=== PATIENT | female | born 1990 | race Caucasian/White ===

== ENCOUNTER 2017-04-13 15:42 | Emergency (ER) | payer OTHER ==
--- NOTE | 2017-04-13 15:49 | PDOC ---
Rapid Medical Evaluation Time Seen by Provider: 04/13/17 15:44 Medical Evaluation: Allergies Allergy/AdvReac Type Severity Reaction Status Date / Time acetaminophen [From Tylenol] Allergy Intermediate tachycardia Verified 12/31/13 10:27 04/13/17 15:45 I have performed a brief in-person evaluation of this patient. The patient presents with a chief complaint of: Pain to base of posterior head/ posterior neck Pertinent physical exam findings: The patient will proceed to the ED for further evaluation. 27 yo F c/o chavez/neck pain x3d ago with blurry vision "little dots all over ". Pt states she's having a hard time remembering things and a "heavy" time talking. Denies n/v/f/c/d, lightheadedness, dizziness, weakness, /d/cp, sob, ext numbness /tingling sensation. Pt is speaking in full sentences in the triage suite. Marissa is able to ambulate without difficulties. Obtained UA/UPreg
[2017-04-13 16:02] VITALS: BMI 24.9
[2017-04-13 16:46] LABS: URINE APPEARANCE CLEAR; URINE BILIRUBIN NEGATIVE (NEGATIVE); URINE BLOOD NEGATIVE (NEGATIVE); URINE COLOR COLORLESS; URINE GLUCOSE (UA) NEGATIVE (NEGATIVE); URINE KETONE TRACE (NEGATIVE); URINE NITRITE NEGATIVE (NEGATIVE); URINE PROTEIN NEGATIVE (NEGATIVE); URINE UROBILINOGEN NEGATIVE E.U./dl (0.2-1.0)
[2017-04-13] MEDS ORDERED: SODIUM CHLORIDE 1,000 ML IV STA (17:04)
[2017-04-13] MEDS ORDERED: METOCLOPRAMIDE HCL INJECTION 10 MG/2 ML VIAL IVPB ONE (17:04)
[2017-04-13] MEDS ORDERED: DEXAMETHASONE SOD PHOSPHATE 10 MG/1 ML VIAL IVPB ONE (17:05)
[2017-04-13 17:24] LABS: URINE LEUK ESTERASE 2+ (NEGATIVE)
[2017-04-13 17:27] LABS: URINE BACTERIA MODERATE /hpf (NONE SEEN); URINE WBC 9 /hpf (3-5)
[2017-04-13 17:45] LABS: BASOPHIL 0.9 % (0-2.0); EOSINOPHIL 0.9 % (0-4.5); MCH 24.6 pg (25.7-33.7); MCHC 31.9 g/dl (32.0-36.0); MEAN CELL VOLUME 77.1 fl (80-96); MEAN PLT VOLUME 9.9 fl (7.5-11.1); NEUTROPHILS 75.9 % (42.8-82.8); PLATELET COUNT 239 K/MM3 (134-434); WHITE BLOOD COUNT 12.5 K/mm3 (4.0-10.0)
[2017-04-13] MEDS ORDERED: DEXAMETHASONE SOD PHOSPHATE 10 MG/1 ML VIAL ONE (17:46)
[2017-04-13] MEDS ORDERED: METOCLOPRAMIDE HCL INJECTION 10 MG/2 ML VIAL ONE (17:46)
--- NOTE | 2017-04-13 18:09 | PDOC ---
History of Present Illness - History of Present Illness Initial Comments: 04/13/17 18:10 The patient is a 27 year old female, with a significant past medical history of migraines, who presents to the emergency department with diffuse headache and posterior neck pain for 5 days. She reports her headache is sharp, diffuse and constant, with intermittent, momentary increases in severity. She reports taking excedrin with minimal alleviation of symptoms, however, denies taking any pain medication in the past 48 hours. She also reports seeing visual black floaters when her headache is exacerbated. The patient reports some difficulty speaking secondary to her neck pain. She localizes most of her pain to the posterior aspect of her neck with mild associated bilateral neck discomfort. She admits to having nasal congestion, but denies throat pain or cough. She denies recent sick contacts. LMP: 3 weeks ago She denies chest pain, shortness of breath, and dizziness. She denies fever, chills, nausea, vomit, diarrhea and constipation. She denies dysuria, frequency , urgency and hematuria. Allergies: acetaminophen (tachycardia) Past surgical history: Family Hx: migraines (mother) Social history: Pt denies toxic habits PCP - Dr. Marissa Marlow <Kady Kwok - Last Filed: 04/13/17 18:10> <Josefa Streeter - Last Filed: 04/13/17 21:43> - General Chief Complaint: Headache Stated Complaint: HEADACHE Time Seen by Provider: 04/13/17 15:44 Past History <Kady Kwok - Last Filed: 04/13/17 18:10> - Past Medical History Asthma: No Cancer: No Cardiac Disorders: No Diabetes: No HTN: No Seizures: No Thyroid Disease: No - Psycho/Social/Smoking Cessation Hx Anxiety: No Suicidal Ideation: No Smoking Status: No Smoking History: Never smoked Have you smoked in the past 12 months: No Number of Cigarettes Smoked Daily: 0 Hx Alcohol Use: No Drug/Substance Use Hx: No Hx Substance Use Treatment: No <Josefa Streeter - Last Filed: 04/13/17 21:43> - Past Medical History Allergies/Adverse Reactions: Allergies Allergy/AdvReac Type Severity Reaction Status Date / Time acetaminophen [From Tylenol] Allergy Intermediate tachycardia Verified 04/13/17 15:46 Home Medications: Ambulatory Orders Amox-Tr/K Cl [Augmentin - 875Mg Tablet] 1 tab PO BID #28 tablet 04/13/17 Fluticasone Prop 0.05% Nasal [Flonase -] 1 - 2 spray NS DAILY PRN #1 spray.pump 04/13/17 Oxymetazoline 0.05% Nasal Soln [Afrin -] 1 spray NS ONCE PRN #1 spraybtl Review of Systems - Review of Systems Able to Perform ROS?: Yes Comments:: 04/13/17 18:10 CONSTITUTIONAL: Absent: fever, chills, diaphoresis, generalized weakness, malaise, loss of appetite HEENT: (+) black visual floaters. Absent: rhinorrhea, nasal congestion, throat pain, throat swelling, difficulty swallowing, mouth swelling, ear pain, eye pain CARDIOVASCULAR: Absent: chest pain, syncope, palpitations, irregular heart rate, lightheadedness , peripheral edema RESPIRATORY: Absent: cough, shortness of breath, dyspnea with exertion, orthopnea, wheezing, stridor, hemoptysis GASTROINTESTINAL: Absent: abdominal pain, abdominal distension, nausea, vomiting, diarrhea, constipation, melena, hematochezia GENITOURINARY: Absent: dysuria, frequency, urgency, hesitancy, hematuria, flank pain, genital pain MUSCULOSKELETAL: (+) neck pain. Absent: arthralgia, joint swelling SKIN: Absent: rash, itching, pallor HEMATOLOGIC/IMMUNOLOGIC: Absent: easy bleeding, easy bruising, lymphadenopathy, frequent infections ENDOCRINE: Absent: unexplained weight gain, unexplained weight loss, heat intolerance, cold intolerance NEUROLOGIC: (+) headache, Absent: focal weakness or paresthesias, dizziness, unsteady gait, seizure, mental status changes, bladder or bowel incontinence PSYCHIATRIC: Absent: anxiety, depression, suicidal or homicidal ideation, hallucinations. <Kady Kwok - Last Filed: 04/13/17 18:10> *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 - Vital Signs Last Vital Signs Temp Pulse Resp BP Pulse Ox 98.4 F 124 H 18 121/88 100 04/13/17 15:46 04/13/17 15:46 04/13/17 15:46 04/13/17 15:46 04/13/17 15:46 - 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 Comments: 04/13/17 18:11 GENERAL: Well developed, well nourished. Awake and alert. No acute distress. HEENT: (+) nasal congestion. Normocephalic, atraumatic. PERRLA, EOMI. No conjunctival pallor. Sclera are non-icteric. Moist mucous membranes. Oropharynx is clear. NECK: (+) mild pain with forward flexion of neck. No pain with extension. No neck tenderness to palpation. Supple. Full ROM. No JVD. Carotid pulses 2+ and symmetric, without bruits. No thyromegaly. No lymphadenopathy. CARDIOVASCULAR: Regular rate and rhythm. No murmurs, rubs, or gallops. Distal pulses are 2+ and symmetric. PULMONARY: No evidence of respiratory distress. Lungs clear to auscultation bilaterally. No wheezing, rales or rhonchi. ABDOMINAL: Soft. Non-tender. Non-distended. No rebound or guarding. No organomegaly. Normoactive bowel sounds. MUSCULOSKELETAL Normal range of motion at all joints. No bony deformities or tenderness. No CVA tenderness. EXTREMITIES: No cyanosis. No clubbing. No edema. No calf tenderness. SKIN: Warm and dry. Normal capillary refill. No rashes. No jaundice. NEUROLOGICAL: Alert, awake, appropriate. Cranial nerves 2-12 intact. Normoreflexic in the upper and lower extremities. Normal speech. Toes are down-going bilaterally. Gait is normal without ataxia. PSYCHIATRIC: Cooperative. Good eye contact. Appropriate mood and affect. <Kady Kwok - Last Filed: 04/13/17 18:10> - Vital Signs Last Vital Signs Temp Pulse Resp BP Pulse Ox 98.4 F 124 H 18 121/88 100 04/13/17 15:46 04/13/17 15:46 04/13/17 15:46 04/13/17 15:46 04/13/17 15:46 <Josefa Streeter - Last Filed: 04/13/17 21:43> ED Treatment Course - LABORATORY CBC & Chemistry Diagram: 04/13/17 17:29 04/13/17 17:29 - ADDITIONAL ORDERS Additional order review: Laboratory Results 04/13/17 15:55 Urine Color Colorless Urine Appearance Clear Urine pH 7.0 Urine Protein Negative Urine Glucose (UA) Negative Urine Ketones Trace H Urine Blood Negative Urine Nitrite Negative Urine Bilirubin Negative Urine Urobilinogen Negative Ur Leukocyte Esterase 2+ H Urine RBC None Urine WBC 9 Ur Epithelial Cells Rare Urine Bacteria Moderate Urine HCG, Qual Negative 04/13/17 17:29 RBC 4.90 MCV 77.1 L MCHC 31.9 L RDW 14.0 MPV 9.9 Neutrophils % 75.9 Lymphocytes % 16.7 D Monocytes % 5.6 Eosinophils % 0.9 Basophils % 0.9 - Medications Given in the ED: ED Medications Discontinued Medications Generic Name Dose Route Start Last Admin Trade Name Freandreia PRN Reason Stop Dose Admin Dexamethasone Sodium Phosphate 10 mg 04/13/17 17:05 04/13/17 17:57 Decadron Injection - IVPB 04/13/17 17:06 10 mg ONCE ONE Administration Sodium Chloride 1,000 mls @ 1,000 mls/hr 04/13/17 17:04 04/13/17 17:37 Normal Saline - IV 04/13/17 18:03 1,000 mls/hr ASDIR STA Administration Metoclopramide HCl 10 mg 04/13/17 17:04 04/13/17 17:50 Reglan Injection - IVPB 04/13/17 17:05 10 mg ONCE ONE Administration <Kady Kwok - Last Filed: 04/13/17 18:10> - LABORATORY CBC & Chemistry Diagram: 04/13/17 17:29 04/13/17 17:29 - ADDITIONAL ORDERS Additional order review: Laboratory Results 04/13/17 15:55 Urine Color Colorless Urine Appearance Clear Urine pH 7.0 Urine Protein Negative Urine Glucose (UA) Negative Urine Ketones Trace H Urine Blood Negative Urine Nitrite Negative Urine Bilirubin Negative Urine Urobilinogen Negative Ur Leukocyte Esterase 2+ H Urine RBC None Urine WBC 9 Ur Epithelial Cells Rare Urine Bacteria Moderate Urine HCG, Qual Negative 04/13/17 17:29 RBC 4.90 MCV 77.1 L MCHC 31.9 L RDW 14.0 MPV 9.9 Neutrophils % 75.9 Lymphocytes % 16.7 D Monocytes % 5.6 Eosinophils % 0.9 Basophils % 0.9 - Medications Given in the ED: ED Medications Discontinued Medications Generic Name Dose Route Start Last Admin Trade Name Rishabhq PRN Reason Stop Dose Admin Dexamethasone Sodium Phosphate 10 mg 04/13/17 17:05 04/13/17 17:57 Decadron Injection - IVPB 04/13/17 17:06 10 mg ONCE ONE Administration Sodium Chloride 1,000 mls @ 1,000 mls/hr 04/13/17 17:04 04/13/17 17:37 Normal Saline - IV 04/13/17 18:03 1,000 mls/hr ASDIR STA Administration Metoclopramide HCl 10 mg 04/13/17 17:04 04/13/17 17:50 Reglan Injection - IVPB 04/13/17 17:05 10 mg ONCE ONE Administration <Joesfa Streeter - Last Filed: 04/13/17 21:43> Medical Decision Making - Medical Decision Making 04/13/17 21:40 37-year-old female with a history of migraine headaches presented with a frontal headache and complaining of neck pain, fever. -No focal neural deficits -I exam showed visual acuity 20 / 20, no diplopia, no blurry vision, easily reads written page CBC showed a mild leukocytosis of 12.8 Negative test Chemistries were unremarkable CAT scan of the head didn't show acute sphenoid sinusitis She was started on antibiotics, and prescriptions were written for intranasal steroids and decongestants -Patient received fluids, Benadryl and Reglan and her headache resolved Upon further discussion with the patient. She did reveal that she had an appointment tomorrow with her nose and throat doctor appointment, Dr. Zhu imp acute sinusitis <Josefa Streeter - Last Filed: 04/13/17 21:43> *DC/Admit/Observation/Transfer - Attestations Scribe Attestion: 04/13/17 18:12 Documentation prepared by Kady Kwok, acting as medical instrument cable fabricator for Josefa Streeter MD <Kady Kwok - Last Filed: 04/13/17 18:10> <Josefa Streeter - Last Filed: 04/13/17 21:43> Diagnosis at time of Disposition: Acute sinusitis - Discharge Dispostion Disposition: HOME Condition at time of disposition: Stable - Prescriptions Prescriptions: Oxymetazoline 0.05% Nasal Soln [Afrin -] 1 spray NS ONCE PRN #1 spraybtl PRN Reason: Nasal Congestion Amox-Tr/K Cl [Augmentin - 875Mg Tablet] 1 tab PO BID #28 tablet Fluticasone Prop 0.05% Nasal [Flonase -] 1 - 2 spray NS DAILY PRN #1 spray.pump PRN Reason: Nasal Congestion - Referrals Referrals: Marissa Marlow NP [Primary Care Provider] - Jm Becker MD [Staff Physician] - - Patient Instructions Printed Discharge Instructions: DI for Sinusitis
[2017-04-13 18:29] LABS: ANION GAP 8 (8-16); BILIRUBIN,TOTAL 0.7 mg/dL (0.2-1.0); CALCIUM 9.4 mg/dL (8.5-10.1); CO2 25 mmol/L (21-32); CREATININE 0.8 mg/dL (0.55-1.02); GLUCOSE,RANDOM 90 mg/dL (74-106); SGOT/AST 18 U/L (15-37); SGPT/ALT 17 U/L (12-78); TOT PROT 7.7 g/dl (6.4-8.2)
[2017-04-13 18:30] LABS: ALK PHOS 73 U/L (45-117)
[2017-04-13] MEDS ORDERED: KETOROLAC TROMETHAMINE 30 MG/1 ML VIAL IVPUSH ONE (19:13)
[2017-04-13 19:28] VITALS: BP 112/66; PULSE 97; TEMP 98.8
[2017-04-13] MEDS ORDERED: CEFTRIAXONE 2 GM in DEXTROSE 5%-WATER - 100 ML IVPB ONE (20:04)
[2017-04-13] MEDS ORDERED: CEFTRIAXONE 100 ML IVPB ONE (20:13)
== END 2017-04-13 21:09 | disposition home or self-care (01) ==
LOC: JER 15:42
PROC: 3E03329 Introduction of Other Anti-infective into Peripheral Vein, Percutaneous Approach (ICD-10-PCS; principal; 2017-04-13)
PROC: 3E033GC Introduction of Other Therapeutic Substance into Peripheral Vein, Percutaneous Approach (ICD-10-PCS; 2017-04-13)
PROC: 3E0333Z Introduction of Anti-inflammatory into Peripheral Vein, Percutaneous Approach (ICD-10-PCS; 2017-04-13)
PROC: 3E0337Z Introduction of Electrolytic and Water Balance Substance into Peripheral Vein, Percutaneous Approach (ICD-10-PCS; 2017-04-13)
DX: J01.90 Acute sinusitis, unspecified (principal)
CPT/HCPCS: 36415; 70450-TC; 80053; 81003; 81015; 84703; 85025; 86140; 96361; 96365; 96375; 99282-25

== ENCOUNTER 2017-07-14 15:16 | Emergency (ER) | payer OTHER ==
[2017-07-14 15:23] VITALS: BMI 25.0
--- NOTE | 2017-07-14 16:59 | PDOC ---
History of Present Illness - General Chief Complaint: Pain Stated Complaint: ABD PAIN (8 WKS ) Time Seen by Provider: 07/14/17 16:59 - History of Present Illness Initial Comments: 27 year old 8 week [id number] presenting with sharp abdominal pain and vaginal spotting. She has not had a vaginal ultrasound yet but states that she is 8 weeks . Denies any medical problems and had a previous that was complicated but a fetus in an abnormal presentation so it was converted to . She has been taking vitamins but has trouble keeping them down because of her morning sickness. 07/14/17 17:53 Past History - Past Medical History Allergies/Adverse Reactions: Allergies Allergy/AdvReac Type Severity Reaction Status Date / Time acetaminophen [From Tylenol] Allergy Intermediate tachycardia Verified 07/14/17 15:23 Home Medications: Ambulatory Orders Cephalexin Monohydrate [Keflex -] 500 mg PO BID #14 capsule 07/14/17 Miconazole Nitrate [Monistat Topical Cream -] 1 applic TP DAILY #1 tube Asthma: No Cancer: No Cardiac Disorders: No Diabetes: No HTN: No Seizures: No Thyroid Disease: No - Suicide/Smoking/Psychosocial Hx Smoking Status: No Smoking History: Never smoked Have you smoked in the past 12 months: No Number of Cigarettes Smoked Daily: 0 Information on smoking cessation initiated: No Hx Alcohol Use: No Drug/Substance Use Hx: No Hx Substance Use Treatment: No Review of Systems - Review of Systems Constitutional: No: Chills, Diaphoresis, Fever Respiratory: No: Cough, Orthopnea, Shortness of Breath Cardiac (ROS): No: Chest Pain, Edema ABD/GI: Yes: Nausea, Vomiting. No: Diarrhea : No: Burning, Dysuria, Discharge Neurological: No: Headache, Numbness, Paresthesia *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 - Vital Signs Last Vital Signs Temp Pulse Resp BP Pulse Ox 98.6 F 101 H 20 141/77 100 07/14/17 15:19 07/14/17 15:19 07/14/17 15:19 07/14/17 15:19 07/14/17 15:19 - 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 General Appearance: Yes: Nourished, Appropriately Dressed. No: Apparent Distress HEENT: positive: EOMI, GIOVANY Neck: positive: Trachea midline, Normal Thyroid, Supple. negative: Tender, Rigid Respiratory/Chest: positive: Lungs Clear, Normal Breath Sounds. negative: Chest Tender, Respiratory Distress Cardiovascular: positive: Regular Rhythm, Regular Rate, S1, S2. negative: Edema , JVD, Murmur Female Pelvic Exam: positive: normal external exam, cervical os closed, discharge (white discharge in vaginal vault), other (No blood) Gastrointestinal/Abdominal: positive: Normal Bowel Sounds, Flat, Soft. negative : Tender Extremity: positive: Normal Inspection, Normal Range of Motion Integumentary: positive: Normal Color, Dry, Warm Neurologic: positive: Fully Oriented, Alert, Normal Mood/Affect, Normal Response , Motor Strength / ED Treatment Course - LABORATORY CBC & Chemistry Diagram: 07/14/17 17:22 07/14/17 17:22 Medical Decision Making - Medical Decision Making 27 year old female with history of caesarean section currently 8 weeks by LMP. TVUS showing intrauterine with bhcg 120k. Vagnal exam showing white discharge concerning for fungal infection. Urine showing 6 wbcs without squams. Will treat for UTI. Keflex 500 BID x 7 days and topical fluconazole. 07/14/17 21:00 *DC/Admit/Observation/Transfer Diagnosis at time of Disposition: Urinary tract infection, Candidiasis of vagina - Discharge Dispostion Disposition: HOME Condition at time of disposition: Improved Admit: No - Referrals Referrals: Marissa Marlow NP [Primary Care Provider] - - Patient Instructions Printed Discharge Instructions: DI for Vaginal Yeast Infection, DI for Urinary Tract Infection (UTI) Print Language: HUNGARIAN
[2017-07-14 18:00] LABS: EOSINOPHIL 2.5 % (0-4.5); MCH 25.5 pg (25.7-33.7); MCHC 32.4 g/dl (32.0-36.0); MEAN CELL VOLUME 78.6 fl (80-96); MEAN PLT VOLUME 10.4 fl (7.5-11.1); NEUTROPHILS 73.4 % (42.8-82.8); PLATELET COUNT 241 K/MM3 (134-434); RDW 15.1 % (11.6-15.6); WHITE BLOOD COUNT 15.1 K/mm3 (4.0-10.0)
[2017-07-14 18:21] LABS: URINE APPEARANCE CLEAR; URINE BILIRUBIN NEGATIVE (NEGATIVE); URINE COLOR STRAW; URINE GLUCOSE (UA) NEGATIVE (NEGATIVE)
[2017-07-14 18:22] LABS: URINE BLOOD NEGATIVE (NEGATIVE); URINE KETONE NEGATIVE (NEGATIVE); URINE LEUK ESTERASE 1+ (NEGATIVE); URINE NITRITE NEGATIVE (NEGATIVE); URINE PROTEIN NEGATIVE (NEGATIVE); URINE RBC <1/HPF /hpf (0-3); URINE UROBILINOGEN NORMAL mg/dL (0.2-1.0)
[2017-07-14 18:23] LABS: URINE BACTERIA RARE /hpf (NONE SEEN); URINE MUCUS RARE; URINE WBC 6/HPF /hpf (3-5)
[2017-07-14 18:30] LABS: ALBUMIN 3.5 g/dl (3.4-5.0); ALK PHOS 69 U/L (45-117); ANION GAP 6 (8-16); BILIRUBIN,TOTAL 0.2 mg/dL (0.2-1.0); CALCIUM 8.9 mg/dL (8.5-10.1); CO2 26 mmol/L (21-32); CREATININE 0.5 mg/dL (0.55-1.02); GLUCOSE,RANDOM 93 mg/dL (74-106); SGOT/AST 17 U/L (15-37); SGPT/ALT 18 U/L (12-78); TOT PROT 7.2 g/dl (6.4-8.2)
--- NOTE | 2017-07-14 20:17 | PDOC ---
Attending Attestation - Resident Resident Name: Arvin Casillas - ED Attending Attestation I have performed the following: I have examined & evaluated the patient, The case was reviewed & discussed with the resident, I agree w/resident's findings & plan, Exceptions are as noted - HPI HPI: 07/14/17 19:24 27 y/o Female, 2 para 0, 8 weeks gestation by LMP, presents to the ER with mild periumbilical pain, nausea and several episodes of nonbloody, nonbilious vomiting and dark vaginal spotting. - Physicial Exam PE: 07/14/17 20:17 Patient is awake and alert, afebrile, hemodynamically stable. HEENT-wnl mm-dry cta rrr abd-soft, nondistended, mild periumbilical tenderness to deep palpation, no guarding or rebound is noted, bowel sounds are normal in all 4 quadrants, there is no CVA tenderness. - Medical Decision Making 07/14/17 20:18 27-year-old female, 2 para 1, 8 weeks by LMP, presents with abdominal pain, nausea/vomiting and vaginal spotting. Will rule out ectopic with transvaginal ultrasound. Will administer IV fluids. I do not suspect acute appendicitis at this time. We'll perform serial abdominal exams. Will obtain UA/ UC to rule out UTI. Will reassess.
[2017-07-14 21:31] VITALS: BP 107/56; PULSE 82; TEMP 98.8
== END 2017-07-14 21:32 | disposition home or self-care (01) ==
LOC: JER 15:16
DX: O26.891 Other specified pregnancy related conditions, first trimester (principal); N39.0 Urinary tract infection, site not specified; B37.3 Candidiasis of vulva and vagina
CPT/HCPCS: 36415; 76801-TC; 80053; 81003; 81015; 84702; 85025; 86850; 86900; 86901; 87086; 87186; 99284-25

== ENCOUNTER 2017-07-15 23:41 | Emergency (ER) | payer OTHER ==
--- NOTE | 2017-07-16 00:17 | PDOC ---
History of Present Illness - General Stated Complaint: VAGINAL BLEEDING () Time Seen by Provider: 07/16/17 00:17 - History of Present Illness Initial Comments: 27 year old 8w8d (on TVUS recently) [id number] presenting with sharp abdominal pain and vaginal spotting with clotting. She was here 24 hours ago with vaginal bleeding but says she is now passing clots. She states that the bleeding increases when she sneezes. Denies any medical problems and had a previous that was complicated by a fetus in an abnormal presentation so it was converted to . She has been taking vitamins but has trouble keeping them down because of her morning sickness. 07/16/17 00:41 Past History - Past Medical History Allergies/Adverse Reactions: Allergies Allergy/AdvReac Type Severity Reaction Status Date / Time acetaminophen [From Tylenol] Allergy Intermediate tachycardia Verified 07/16/17 00:26 Home Medications: Ambulatory Orders Cephalexin Monohydrate [Keflex -] 500 mg PO BID #14 capsule 07/14/17 Miconazole Nitrate [Monistat Topical Cream -] 1 applic TP DAILY #1 tube Asthma: No Cancer: No Cardiac Disorders: No Diabetes: No HTN: No Seizures: No Thyroid Disease: No - Reproductive History (#): 2 Para: 1 Spontaneous : 0 - Suicide/Smoking/Psychosocial Hx Smoking Status: No Smoking History: Never smoked Have you smoked in the past 12 months: No Number of Cigarettes Smoked Daily: 0 Hx Alcohol Use: No Drug/Substance Use Hx: No Hx Substance Use Treatment: No Review of Systems - Review of Systems Constitutional: No: Chills, Fever, Loss of Appetite HEENTM: No: Blurred Vision Respiratory: No: Cough, Shortness of Breath Cardiac (ROS): No: Chest Pain ABD/GI: Yes: Nausea, Vomiting. No: Constipated, Diarrhea : No: Discharge, Frequency, Hematuria, Pain, Urgency Integumentary: No: Change in Color Neurological: No: Headache, Numbness *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 - 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 General Appearance: Yes: Nourished, Appropriately Dressed. No: Apparent Distress HEENT: positive: EOMI, GIOVANY, Normal Voice Neck: positive: Trachea midline, Normal Thyroid, Supple. negative: Tender, Rigid Respiratory/Chest: positive: Lungs Clear, Normal Breath Sounds. negative: Chest Tender, Respiratory Distress Cardiovascular: positive: Regular Rhythm, Regular Rate, S1, S2. negative: Edema , JVD, Murmur Female Pelvic Exam: positive: normal external exam, cervical os closed, other ( Brown discharge mixed with white non caseeous discharge.). negative: vaginal bleeding Gastrointestinal/Abdominal: positive: Normal Bowel Sounds, Flat, Soft. negative : Tender, Organomegaly Musculoskeletal: positive: Normal Inspection. negative: CVA Tenderness Extremity: positive: Normal Inspection, Normal Range of Motion. negative: Tender Integumentary: positive: Normal Color, Dry Neurologic: positive: Fully Oriented, Alert, Normal Mood/Affect, Motor Strength 02/26 ED Treatment Course - LABORATORY CBC & Chemistry Diagram: 07/16/17 00:49 07/16/17 00:49 Medical Decision Making - Medical Decision Making 27 year old female here for continued vaginal bleeding after presentation 24 hours ago for the same complaint but new passing of clots. This is concerning for threatened as bleeding has continued from previous day. 07/16/17 00:45 TVUS still showing viable IUP at 9weeks 0 days but limited anatomical evaluation. Patient blood type B+ so no need for rhogam. Will DC home with follow up precautions and encouragement to see ObyGyn earlier than the five week scheduled appointment. 07/16/17 04:16 *DC/Admit/Observation/Transfer Diagnosis at time of Disposition: Threatened in early - Discharge Dispostion Disposition: HOME Condition at time of disposition: Improved Admit: No - Patient Instructions Printed Discharge Instructions: DI for Threatened Additional Instructions: Te vimos por sangrado vaginal. Mike embarazo an es viable, lyndsay usted necesita sweta a mike mdico de O[facility]yn esta semana. Por favor, jay nestor gabriela huerta pronto clemencia sea posible. Usted puede sweta un poco de descarga de color marrn oscuro de mike vagina, lyndsay esto es neri vieja. Vuelva por favor si usted tiene nueva salida juan de la neri de mike vagina. Print Language: KHMER
[2017-07-16 00:28] VITALS: BP 110/73; PULSE 75; TEMP 98.6; BMI 24.9
[2017-07-16 01:09] LABS: EOSINOPHIL 4.5 % (0-4.5); MCH 25.5 pg (25.7-33.7); MCHC 32.5 g/dl (32.0-36.0); MEAN CELL VOLUME 78.7 fl (80-96); MEAN PLT VOLUME 9.8 fl (7.5-11.1); NEUTROPHILS 61.8 % (42.8-82.8); PLATELET COUNT 246 K/MM3 (134-434); RDW 15.2 % (11.6-15.6); WHITE BLOOD COUNT 17.5 K/mm3 (4.0-10.0)
[2017-07-16 01:18] LABS: URINE APPEARANCE CLEAR; URINE BILIRUBIN NEGATIVE (NEGATIVE); URINE BLOOD 1+ (NEGATIVE); URINE COLOR LTYELLOW; URINE GLUCOSE (UA) NEGATIVE (NEGATIVE); URINE KETONE TRACE (NEGATIVE); URINE NITRITE NEGATIVE (NEGATIVE); URINE PROTEIN NEGATIVE (NEGATIVE); URINE UROBILINOGEN NEGATIVE mg/dL (0.2-1.0)
[2017-07-16 01:32] LABS: ALBUMIN 3.6 g/dl (3.4-5.0); ANION GAP 11 (8-16); CALCIUM 9.1 mg/dL (8.5-10.1); CO2 24 mmol/L (21-32); GLUCOSE,RANDOM 104 mg/dL (74-106)
[2017-07-16 01:37] LABS: URINE LEUK ESTERASE 1+ (NEGATIVE)
--- NOTE | 2017-07-16 01:38 | PDOC ---
Attending Attestation - Resident Resident Name: Arvin Casillas - ED Attending Attestation I have performed the following: I have examined & evaluated the patient, The case was reviewed & discussed with the resident, I agree w/resident's findings & plan, Exceptions are as noted - HPI HPI: 07/16/17 01:36 27-year-old female with second visit for first trimester bleeding/discharge. Patient seen here 2 days ago and noted to have single live IUP at about 8 weeks 8 days gestation, now here with persistent brown discharge. - Physicial Exam PE: 07/16/17 01:37 Abdomen is benign, vital signs are normal - Medical Decision Making 07/16/17 01:38 Patient seen and evaluated with the resident. I agree with the overall evaluation, assessment, and management with the following summary of visit: 27-year-old female with persistent first trimester vaginal discharge. Suspect that this was bleed 48 hours ago, and now discharge of clotted blood. Rule out progression of possible miscarriage. Repeat labs including hCG Repeat ultrasound Dispo accordingly
[2017-07-16 01:45] LABS: ALK PHOS 67 U/L (45-117); BILIRUBIN,TOTAL 0.4 mg/dL (0.2-1.0); SGOT/AST 10 U/L (15-37); SGPT/ALT 17 U/L (12-78); TOT PROT 7.1 g/dl (6.4-8.2)
[2017-07-16 02:03] LABS: CREATININE 0.5 mg/dL (0.55-1.02)
--- NOTE | 2017-07-17 07:42 | PDOC ---
Patient Follow-up (Call Back) - Post ED Follow - Up Chief Complaint: Vaginal Bleeding Condition at time of discharge: Good Disposition at time of original discharge: HOME Reason for Call Back: Abnwl. Microbiology (Urine culture positive for non- lactose fermenting GNB. Pt. currently on Keflex. Waiting for sensitivity)
== END 2017-07-16 04:49 | disposition home or self-care (01) ==
LOC: JER 23:41
DX: O20.0 Threatened abortion (principal); Z3A.09 9 weeks gestation of pregnancy
CPT/HCPCS: 36415; 76801-TC; 80053; 81003; 81015; 84702; 85025; 86850; 86900; 86901; 87086; 87186; 99283-25

== ENCOUNTER 2018-01-02 23:54 | Emergency (ER) | payer OTHER ==
[2018-01-03] MEDS ORDERED: DEXTROSE 5%-LACTATED RINGERS 500 ML IV ONE
[2018-01-03 03:48] VITALS: TEMP 98; BMI 30.2
--- NOTE | 2018-01-03 07:01 | PDOC ---
History of Present Illness <Kirstie Russo - Last Filed: 01/03/18 07:06> - General History Source: Patient Exam Limitations: No Limitations - History of Present Illness Initial Comments: 01/03/18 07:06 The patient is a 27 year old female, , 33 weeks with no significant past medical history who presents to the ED with complaints of cold like symptoms for one day. The patient was seen by TRAVELIFT OPERATOR prior to her arrival to the ED secondary to her stating she didnt feel the baby moving. US was performed and was normal and patient was cleared to come into the ED by Dr. Paige. Upon arrival to the ED, patient complaints of malaise and a subjective fever for one day. Denies chest pain or shortness of breath. Denies nausea, vomiting, or diarrhea. Denies abdominal pain. Denies any other symptoms. <Judith Ramachandran - Last Filed: 01/03/18 07:07> - General Chief Complaint: Cold Symptoms Stated Complaint: HEADACHE/33 WKS Time Seen by Provider: 01/03/18 04:34 Past History - Past Medical History Asthma: No Cancer: No Cardiac Disorders: No COPD: No Diabetes: No HTN: No Seizures: No Thyroid Disease: No - Reproductive History (#): 2 Para: 1 Spontaneous : 0 - Suicide/Smoking/Psychosocial Hx Smoking Status: No Smoking History: Never smoked Have you smoked in the past 12 months: No Number of Cigarettes Smoked Daily: 0 Information on smoking cessation initiated: No Hx Alcohol Use: No Drug/Substance Use Hx: No Substance Use Type: None Hx Substance Use Treatment: No <Kirstie Russo - Last Filed: 01/03/18 07:06> <Judith Ramachandran - Last Filed: 01/03/18 07:07> - Past Medical History Allergies/Adverse Reactions: Allergies Allergy/AdvReac Type Severity Reaction Status Date / Time acetaminophen [From Tylenol] Allergy Intermediate tachycardia Verified 01/03/18 03:48 Home Medications: Ambulatory Orders Ferrous Sulfate [Feosol] 325 mg PO HS 01/03/18 Vit/Iron Fum/Folic AC [ Tablet] 1 each PO HS 01/03/18 Review of Systems - Review of Systems Able to Perform ROS?: Yes Comments:: 01/03/18 07:06 CONSTITUTIONAL: + fever, malaise Absent: diaphoresis, generalized weakness, loss of appetite HEENT: Absent: rhinorrhea, nasal congestion, throat pain, throat swelling, difficulty swallowing, mouth swelling, ear pain, eye pain, visual Changes CARDIOVASCULAR: Absent: chest pain, syncope, palpitations, irregular heart rate, lightheadedness , peripheral edema RESPIRATORY: Absent: cough, shortness of breath, dyspnea with exertion, orthopnea, wheezing, stridor, hemoptysis GASTROINTESTINAL: Absent: abdominal pain, abdominal distension, nausea, vomiting, diarrhea, constipation, melena, hematochezia GENITOURINARY: Absent: dysuria, frequency, urgency, hesitancy, hematuria, flank pain, genital pain MUSCULOSKELETAL: Absent: myalgia, arthralgia, joint swelling SKIN: Absent: rash, itching, pallor HEMATOLOGIC/IMMUNOLOGIC: Absent: easy bleeding, easy bruising, lymphadenopathy, frequent infections ENDOCRINE: Absent: unexplained weight gain, unexplained weight loss, heat intolerance, cold intolerance NEUROLOGIC: Absent: focal weakness or paresthesias, dizziness, headache unsteady gait, seizure, mental status changes, bladder or bowel incontinence PSYCHIATRIC: Absent: anxiety, depression, suicidal or homicidal ideation, hallucinations. All Other Systems: Reviewed and Negative <Judith Ramachandran - Last Filed: 01/03/18 07:07> *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 - Vital Signs Last Vital Signs Temp Pulse Resp BP Pulse Ox 98.0 F 90 18 98/58 98 01/03/18 03:46 01/03/18 03:46 01/03/18 03:46 01/03/18 03:46 01/03/18 03:46 <Kirstie Russo - Last Filed: 01/03/18 07:06> - Vital Signs Last Vital Signs Temp Pulse Resp BP Pulse Ox 98.0 F 90 18 98/58 98 01/03/18 03:46 01/03/18 03:46 01/03/18 03:46 01/03/18 03:46 01/03/18 03:46 - 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 Comments: 01/03/18 07:06 GENERAL: Well developed, well nourished. Awake and alert. No acute distress. HEENT: Normocephalic, atraumatic. PERRLA, EOMI. No conjunctival pallor. Sclera are non- icteric. Moist mucous membranes. Oropharynx is clear. NECK: Supple. Full ROM. No JVD. Carotid pulses 2+ and symmetric, without bruits. No thyromegaly. NCo lymphadenopathy. CARDIOVASCULAR: Regular rate and rhythm. No murmurs, rubs, or gallops. Distal pulses are 2+ and symmetric. PULMONARY: No evidence of respiratory distress. Lungs clear to auscultation bilaterally. No wheezing, rales or rhonchi. ABDOMINAL:+ gravid Soft. Non-tender.] No rebound or guarding. No organomegaly. Normoactive bowel sounds. MUSCULOSKELETAL Normal range of motion at all joints. No bony deformities or tenderness. No CVA tenderness. EXTREMITIES: No cyanosis. No clubbing. No edema. No calf tenderness. SKIN: Warm and dry. Normal capillary refill. No rashes. No jaundice. NEUROLOGICAL: Alert, awake, appropriate. Cranial nerves 2-12 intact. No deficits to light touch and temperature in face, upper extremities and lower extremities. No motor deficits in the in face, upper extremities and lower extremities. Normoreflexic in the upper and lower extremities. Normal speech. Toes are down- going bilaterally. Gait is normal without ataxia. PSYCHIATRIC: Cooperative. Good eye contact. Appropriate mood and affect. <Judith Ramachandran - Last Filed: 01/03/18 07:07> ED Treatment Course - ADDITIONAL ORDERS Additional order review: 01/03/18 06:00 Influenza Types A,B Antigen (PRINCE) - Final Nasopharyngeal Swab - Final - Medications Given in the ED: ED Medications Discontinued Medications Generic Name Dose Route Start Last Admin Trade Name Freq PRN Reason Stop Dose Admin Dextrose/Lactated Ringer's 500 mls @ 250 mls/hr 01/03/18 00:00 01/03/18 00:05 D5-Lr - IV 01/03/18 01:59 250 mls/hr ONCE ONE Administration <Kirstie Russo - Last Filed: 01/03/18 07:06> - ADDITIONAL ORDERS Additional order review: 01/03/18 06:00 Influenza Types A,B Antigen (PRINCE) - Final Nasopharyngeal Swab - Final - Medications Given in the ED: ED Medications Discontinued Medications Generic Name Dose Route Start Last Admin Trade Name Freq PRN Reason Stop Dose Admin Dextrose/Lactated Ringer's 500 mls @ 250 mls/hr 01/03/18 00:00 01/03/18 00:05 D5-Lr - IV 01/03/18 01:59 250 mls/hr ONCE ONE Administration <Judith Ramachandran - Last Filed: 01/03/18 07:07> Medical Decision Making - Medical Decision Making 01/03/18 07:06 Pt comes with fever, but no other complaints. 33 weeks . <Kirstie Russo - Last Filed: 01/03/18 07:06> *DC/Admit/Observation/Transfer <Kirstie Russo - Last Filed: 01/03/18 07:06> - Attestations Scribe Attestion: 01/03/18 07:07 Documentation prepared by Judith Ramachandran, acting as medical collections specialist for Kirstie Russo MD <Judith Ramachandran - Last Filed: 01/03/18 07:07> - Referrals Referrals: Shady Burris MD [Staff Physician] - - Patient Instructions Additional Instructions: Return to L&D if You start to have regular contractions Your water breaks you have any vaginal bleeding or You do not feel the baby move - Post Discharge Activity
[2018-01-03 07:25] LABS: BASO % 0.3 % (0-2.0); HEMATOCRIT 30.5 % (32.4-45.2); HEMOGLOBIN 10.1 GM/dL (10.7-15.3); LYMPH % 11.3 % (8-40); MCH 27.1 pg (25.7-33.7); MCHC 33.2 g/dl (32.0-36.0); MEAN CELL VOLUME 81.6 fl (80-96); MEAN PLT VOLUME 9.1 fl (7.5-11.1); MONO % 14.1 % (3.8-10.2); NEUT % 74.3 % (42.8-82.8); PLATELET COUNT 155 K/MM3 (134-434); RBC 3.74 M/mm3 (3.60-5.2); RDW 15.9 % (11.6-15.6); WHITE BLOOD COUNT 14.9 K/mm3 (4.0-10.0)
[2018-01-03 08:02] LABS: ALBUMIN 2.5 g/dl (3.4-5.0); ANION GAP 13 (8-16); BLOOD UREA NITROGEN 5 mg/dL (7-18); CALCIUM 7.9 mg/dL (8.5-10.1); CHLORIDE 108 mmol/L (98-107); CO2 19 mmol/L (21-32); CREATININE 0.4 mg/dL (0.55-1.02); GLUCOSE,RANDOM 90 mg/dL (74-106); POTASSIUM 3.6 mmol/L (3.5-5.1); SGOT/AST 18 U/L (15-37); SGPT/ALT 10 U/L (12-78); SODIUM 140 mmol/L (136-145)
[2018-01-03 08:04] LABS: ALK PHOS 108 U/L (45-117); BILIRUBIN,TOTAL 0.5 mg/dL (0.2-1.0); TOT PROT 5.9 g/dl (6.4-8.2)
[2018-01-03 08:38] LABS: URINE APPEARANCE CLEAR; URINE BILIRUBIN NEGATIVE (NEGATIVE); URINE BLOOD NEGATIVE (NEGATIVE); URINE COLOR LTYELLOW; URINE GLUCOSE (UA) NEGATIVE (NEGATIVE); URINE KETONE 2+ (NEGATIVE); URINE NITRITE NEGATIVE (NEGATIVE); URINE PROTEIN NEGATIVE (NEGATIVE); URINE UROBILINOGEN NEGATIVE mg/dL (0.2-1.0)
[2018-01-03 08:41] LABS: URINE LEUK ESTERASE 2+ (NEGATIVE)
[2018-01-03 08:51] LABS: EPI CELLS RARE /HPF (FEW); URINE BACTERIA RARE /hpf (NONE SEEN); URINE MUCUS RARE
[2018-01-03 09:15] VITALS: BP 100/63; PULSE 95
--- NOTE | 2018-01-03 10:26 | PDOC ---
*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 - Vital Signs Last Vital Signs Temp Pulse Resp BP Pulse Ox 98.0 F 95 H 17 100/63 99 01/03/18 03:46 01/03/18 09:14 01/03/18 09:14 01/03/18 09:14 01/03/18 09:14 - 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 Comments: 01/03/18 10:21 afebrile, heart rate markedly improved ambulating and feeling well ED Treatment Course - LABORATORY CBC & Chemistry Diagram: 01/03/18 07:06 01/03/18 07:06 - ADDITIONAL ORDERS Additional order review: Laboratory Results 01/03/18 01/03/18 08:02 07:06 Sodium 140 Potassium 3.6 Chloride 108 H Carbon Dioxide 19 L Anion Gap 13 BUN 5 L Creatinine 0.4 L Creat Clearance w eGFR > 60 Random Glucose 90 Calcium 7.9 L Total Bilirubin 0.5 D AST 18 ALT 10 L Alkaline Phosphatase 108 Total Protein 5.9 L Albumin 2.5 L Urine Color Ltyellow Urine Appearance Clear Urine pH 7.0 Ur Specific [place] 1.006 Urine Protein Negative Urine Glucose (UA) Negative Urine Ketones 2+ H Urine Blood Negative Urine Nitrite Negative Urine Bilirubin Negative Urine Urobilinogen Negative Ur Leukocyte Esterase 2+ H Urine WBC (Auto) 15 Urine RBC (Auto) None Ur Epithelial Cells Rare Urine Bacteria Rare Urine Mucus Rare 01/03/18 06:00 Influenza Types A,B Antigen (PRINCE) - Final Nasopharyngeal Swab - Final 01/03/18 07:06 RBC 3.74 MCV 81.6 MCHC 33.2 RDW 15.9 H MPV 9.1 Neutrophils % 74.3 D Lymphocytes % 11.3 D Monocytes % 14.1 H D Eosinophils % 0.0 D Basophils % 0.3 - Medications Given in the ED: ED Medications Discontinued Medications Generic Name Dose Route Start Last Admin Trade Name Freq PRN Reason Stop Dose Admin Dextrose/Lactated Ringer's 500 mls @ 250 mls/hr 01/03/18 00:00 01/03/18 00:05 D5-Lr - IV 01/03/18 01:59 250 mls/hr ONCE ONE Administration Medical Decision Making - Medical Decision Making 01/03/18 10:22 Received signout on this 27-year-old female third trimester cleared by labor and delivery who presented with URI symptoms, influenza negative. Sent back to ER for further evaluation of fever. At sign out, labs were sent, plan was to follow-up and discharge with likely URI symptoms. Labs notable for white count of 14, normal chemistries including LFTs, elevated leukoesterase and 15 white blood cells in the urine which could be suspicious for UTI in this woman. Patient eloped from the ED, called at cell phone and voice mail left. Will needed empiric treatment with antibiotics, which were called into the pharmacy. Will continue to contact patient or her OB. 01/03/18 11:18 called pt again and spoke with her. recommend return for IV abx (tachy, febrile initially) but she feels fine, states asx from Urine perspective, but agrees to empiric treatment. Will obtain macrobid from her pharmacy. discussed return criteria (any new concerns, fever/chills, bleeding/cramping, difficulty urinating). Will f/u with SALES CLOSER also wan. *DC/Admit/Observation/Transfer Diagnosis at time of Disposition: Third trimester UTI (urinary tract infection) Qualifiers: Urinary tract infection type: acute cystitis Hematuria presence: without hematuria Qualified Code(s): N30.00 - Acute cystitis without hematuria - Discharge Dispostion Disposition: HOME Condition at time of disposition: Improved - Prescriptions Prescriptions: Nitrofurantoin Monohyd/M-Cryst [Macrobid -] 100 mg PO BID #14 capsule - Referrals Referrals: Shady Burris MD [Staff Physician] - - Patient Instructions Additional Instructions: Return to L&D if You start to have regular contractions Your water breaks you have any vaginal bleeding or You do not feel the baby move - Post Discharge Activity
== END 2018-01-03 09:15 | disposition home or self-care (01) ==
LOC: JER 23:54
PROC: 3E0337Z Introduction of Electrolytic and Water Balance Substance into Peripheral Vein, Percutaneous Approach (ICD-10-PCS; principal; 2018-01-02)
DX: O26.893 Other specified pregnancy related conditions, third trimester (principal); O23.13 Infections of bladder in pregnancy, third trimester; N30.90 Cystitis, unspecified without hematuria; Z3A.33 33 weeks gestation of pregnancy
CPT/HCPCS: 36415; 76819-TC; 80053; 81003; 81015; 85025; 87804; 96360; 96361; 99281-25

== ENCOUNTER 2018-02-01 00:25 | Inpatient (IN) | payer OTHER ==
[2018-02-01 02:08] VITALS: BMI 31.0
[2018-02-01] MEDS ORDERED: CITRIC ACID/SODIUM CITRATE 30 ML UNIT-DOSE CUP PO ONE (02:30)
[2018-02-01] MEDS ORDERED: ELECTROLYTE-148 SOLN 500 ML IV ONE ×2 (02:30→03:00)
[2018-02-01 02:55] LABS: BASO % 0.5 % (0-2.0); EOS % 2.7 % (0-4.5); HEMATOCRIT 32.8 % (32.4-45.2); LYMPH % 14.1 % (8-40); MCH 27.2 pg (25.7-33.7); MCHC 33.5 g/dl (32.0-36.0); MEAN CELL VOLUME 81.3 fl (80-96); MEAN PLT VOLUME 9.3 fl (7.5-11.1); MONO % 8.3 % (3.8-10.2); NEUT % 74.4 % (42.8-82.8); PLATELET COUNT 173 K/MM3 (134-434); RBC 4.04 M/mm3 (3.60-5.2); RDW 16.6 % (11.6-15.6); WHITE BLOOD COUNT 17.7 K/mm3 (4.0-10.0)
[2018-02-01 03:12] LABS: INR 0.96 (0.82-1.09); PROTHROMBIN TIME (PATIENT) 10.8 SEC (9.98-11.88)
[2018-02-01 03:15] LABS: ACTIVATED PTT 26.1 SECONDS (26.9-34.4)
[2018-02-01 03:19] LABS: ANION GAP 11 (8-16); BLOOD UREA NITROGEN 5 mg/dL (7-18); CALCIUM 8.5 mg/dL (8.5-10.1); CHLORIDE 106 mmol/L (98-107); CO2 23 mmol/L (21-32); CREATININE 0.5 mg/dL (0.55-1.02); GLUCOSE,RANDOM 89 mg/dL (74-106); POTASSIUM 3.6 mmol/L (3.5-5.1); SODIUM 140 mmol/L (136-145)
[2018-02-01] MEDS ORDERED: ELECTROLYTE-148 SOLN 1,000 ML IV SCH (06:30)
--- NOTE | 2018-02-01 06:35 | HP ---
Admitting History and Physical - Admission Chief Complaint: Spontaneous rupture of membrane History of Present Illness: 28 yo @ 37 weeks gestation, EDC 02/10/18, admitted for labor pain is pre op for repeat . History Source: Patient Limitations to Obtaining History: No Limitations - Past Medical History ...: 2 ...Para: 1 - Past Surgical History Past Surgical History: Yes: - Smoking History Smoking history: Never smoked Have you smoked in the past 12 months: No Aproximately how many cigarettes per day: 0 - Alcohol/Substance Use Hx Alcohol Use: No - Social History Usual Living Arrangement: Yes: With Significant Other History of Recent Travel: No Home Medications - Allergies Allergies/Adverse Reactions: Allergies Allergy/AdvReac Type Severity Reaction Status Date / Time acetaminophen [From Tylenol] Allergy Intermediate tachycardia Verified 02/01/18 01:49 - Home Medications Home Medications: Ambulatory Orders Ferrous Sulfate [Feosol] 325 mg PO HS 01/03/18 Vit/Iron Fum/Folic AC [ Tablet] 1 each PO HS 01/03/18 Family Disease History - Family Disease History Family History: Unremarkable Review of Systems - Review of Systems Constitutional: reports: No Symptoms Eyes: reports: No Symptoms HENT: reports: No Symptoms Neck: reports: No Symptoms Cardiovascular: reports: No Symptoms Respiratory: reports: No Symptoms Gastrointestinal: reports: No Symptoms Genitourinary: reports: Pain Breasts: reports: No Symptoms Reported Neurological: reports: No Symptoms Pain Intensity: 4 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ination Vital Signs: Vital Signs Temperature 99.2 F 02/01/18 05:00 Pulse Rate 83 02/01/18 05:00 Respiratory Rate 18 02/01/18 05:00 Blood Pressure 118/68 02/01/18 05:00 O2 Sat by Pulse Oximetry (%) Constitutional: Yes: Well Nourished HENT: Yes: Atraumatic Neck: Yes: Supple Cardiovascular: Yes: Regular Rate and Rhythm Respiratory: Yes: Regular Gastrointestinal: Yes: Normal Bowel Sounds Musculoskeletal: Yes: WNL Neurological: Yes: Alert, Oriented ...Motor Strength: WNL Psychiatric: Yes: Alert, Oriented Labs: CBC, BMP 02/01/18 02:30 02/01/18 02:30 Problem List - Problems (1) Previous section complicating , antepartum condition or complication Code(s): O34.219 - MATERNAL CARE FOR UNSP TYPE SCAR FROM PREVIOUS DEL Assessment/Plan Previous Spontaneous rupture of membrane Pre op for repeat Consent signed Anesthesia to see patient
[2018-02-01] MEDS ORDERED: PHENYLEPHRINE HCL 10 MG/1 ML SINGLE DOSE VIAL ONE (06:45)
[2018-02-01] MEDS ORDERED: morphine SULFATE/Preservative Free 0.5 MG/ML (1cc Syringe) ONE (06:46)
[2018-02-01] MEDS ORDERED: ONDANSETRON 4 MG/2 ML VIAL IVPUSH PRN (07:08)
[2018-02-01] MEDS ORDERED: MIDAZOLAM HCL 2 MG/2 ML SINGLE DOSE VIAL ONE (07:17)
[2018-02-01] MEDS ORDERED: METHYLERGONOVINE MALEATE 0.2 MG/1 ML AMP IM PRN (07:40)
[2018-02-01] MEDS ORDERED: IBUPROFEN 600 MG TABLET (FP) PO PRN (07:40)
--- NOTE | 2018-02-01 07:44 | OP ---
Operative Note - Note: Operative Date: 02/01/18 Pre-Operative Diagnosis: Previous in labor Operation: Repeat Low Transverse Findings: Baby in LOT position Post-Operative Diagnosis: Same as Pre-op Surgeon: Rosanne Benjamin White Lead Filterer: Claudette Meeks Anesthesia: Spinal Specimens Removed: Placenta Estimated Blood Loss (mls): 600 Operative Report Dictated: Yes
[2018-02-01] MEDS ORDERED: OXYTOCIN 20 UNITS in 0.9% NS 20 UNIT/1,000 ML INFUS.BAG IV SCH (07:45)
[2018-02-01] MEDS ORDERED: OXYTOCIN 20 UNITS in 0.9% NS 20 UNIT/1,000 ML INFUS.BAG IV ONE (07:56)
[2018-02-01] MEDS: FERROUS SO4 325 MG TABLET (FP) PO SCH ×2 (08:35→18:18)
[2018-02-01] MEDS: PRENATAL VITAMINS W/ FOLIC ACID TABLET (FP) PO SCH (09:20)
[2018-02-01] MEDS: IBUPROFEN 800 MG/8 ML IJ IVPB PRN ×2 (09:29→18:27)
[2018-02-02] MEDS: IBUPROFEN 800 MG/8 ML IJ IVPB PRN (05:06)
--- NOTE | 2018-02-02 07:38 | PN ---
Post Progress Note - Subjective Subjective: c/o pain scale 2 now, before pain meds 9/10 . not voided after russ is taken out Post Day: 1 Type of Delivery: Repeat C/S Vital Signs: Vital Signs Temperature 98.8 F 02/02/18 05:11 Pulse Rate 74 02/02/18 05:11 Respiratory Rate 20 02/02/18 06:00 Blood Pressure 109/64 02/02/18 05:11 O2 Sat by Pulse Oximetry (%) 100 02/01/18 08:50 Breast Exam: Yes: Soft, Other (plans to BF ). No: Engorged Uterus: Yes: Fundus Firm, Fundus below umbilicus, Non-tender Incision: Yes: Dressing dry and intact. No: Oozing, Other Abdomen/GI: Yes: Abdomen soft (bs active ), Tender, Tolerating PO (fluids ). No : Abdominal Distention, Passing flatus Lochia: Yes: Rubra Lochia, amount: Moderate Extremities: Yes: Calves non-tender Perineum: Yes: Intact Activity: Ambulating (oob in chair ) - Labs Labs: CBC WBC 17.7 K/mm3 (4.0-10.0) H 02/01/18 02:30 RBC 4.04 M/mm3 (3.60-5.2) 02/01/18 02:30 Hgb 11.0 GM/dL (10.7-15.3) 02/01/18 02:30 Hct 32.8 % (32.4-45.2) 02/01/18 02:30 MCV 81.3 fl (80-96) 02/01/18 02:30 MCH 27.2 pg (25.7-33.7) 02/01/18 02:30 MCHC 33.5 g/dl (32.0-36.0) 02/01/18 02:30 RDW 16.6 % (11.6-15.6) H 02/01/18 02:30 Plt Count 173 K/MM3 (134-434) 02/01/18 02:30 MPV 9.3 fl (7.5-11.1) 02/01/18 02:30 Neutrophils % 74.4 % (42.8-82.8) 02/01/18 02:30 Lymphocytes % 14.1 % (8-40) D 02/01/18 02:30 Monocytes % 8.3 % (3.8-10.2) 02/01/18 02:30 Eosinophils % 2.7 % (0-4.5) D 02/01/18 02:30 Basophils % 0.5 % (0-2.0) 02/01/18 02:30 Other Findings, Remarks: rs cta urine out put 1200 ml Problem List - Problems (1) delivery delivered Code(s): O82 - ENCOUNTER FOR DELIVERY WITHOUT INDICATION Assessment/Plan stable s/p rc/s #day1 plan enciurage ambulation, deep brathing , po fluids ct po care po cbc pending
[2018-02-02] MEDS ORDERED: BISACODYL 10 MG SUPP.RECT RC PRN (07:41)
[2018-02-02] MEDS: FERROUS SO4 325 MG TABLET (FP) PO SCH ×2 (08:33→17:25)
[2018-02-02] MEDS: oxyCODONE HCL 5 MG TABLET PO PRN ×3 (08:56→18:53)
[2018-02-02 09:03] LABS: BASO % 0.7 % (0-2.0); EOS % 3.3 % (0-4.5); HEMOGLOBIN 11.1 GM/dL (10.7-15.3); LYMPH % 16.1 % (8-40); MCHC 32.7 g/dl (32.0-36.0); MEAN CELL VOLUME 82.6 fl (80-96); MEAN PLT VOLUME 9.2 fl (7.5-11.1); MONO % 8.6 % (3.8-10.2); NEUT % 71.3 % (42.8-82.8); PLATELET COUNT 175 K/MM3 (134-434); RBC 4.11 M/mm3 (3.60-5.2); RDW 16.9 % (11.6-15.6); WHITE BLOOD COUNT 15.2 K/mm3 (4.0-10.0)
[2018-02-02] MEDS: PRENATAL VITAMINS W/ FOLIC ACID TABLET (FP) PO SCH (09:06)
[2018-02-02] MEDS: SIMETHICONE 80 MG TAB.CHEW (FP) PO PRN (18:53)
[2018-02-02] MEDS: IBUPROFEN 600 MG TABLET (FP) PO PRN (21:43)
[2018-02-03] MEDS: SIMETHICONE 80 MG TAB.CHEW (FP) PO PRN ×4 (05:20→21:05)
[2018-02-03] MEDS: oxyCODONE HCL 5 MG TABLET PO PRN ×3 (05:20→21:06)
[2018-02-03] MEDS: IBUPROFEN 600 MG TABLET (FP) PO PRN ×4 (05:21→21:06)
[2018-02-03] MEDS: FERROUS SO4 325 MG TABLET (FP) PO SCH ×2 (08:23→17:33)
[2018-02-03] MEDS: PRENATAL VITAMINS W/ FOLIC ACID TABLET (FP) PO SCH (09:19)
--- NOTE | 2018-02-03 10:20 | PN ---
Progress Note (short form) - Note Progress Note: Anesthesia postop note 28 y/o F s/p spinal anesthesia for section, duramorph for postop pain management POD#2, vss, aaox3, sensory motor intact distally, pain well controlled No anesthesia complications.
--- NOTE | 2018-02-03 14:41 | PN ---
Post Progress Note - Subjective Subjective: 28 yo Para 2 status post repeat , seen and evaluated. She has no complaints. Post Day: 2 Type of Delivery: Repeat C/S Vital Signs: Vital Signs Temperature 98.3 F 02/03/18 09:42 Pulse Rate 70 02/03/18 09:42 Respiratory Rate 15 02/03/18 09:42 Blood Pressure 119/72 02/03/18 09:42 O2 Sat by Pulse Oximetry (%) 96 02/02/18 20:15 Breast Exam: Yes: Soft Uterus: Yes: Fundus Firm Incision: Yes: Dressing dry and intact Abdomen/GI: Yes: Abdomen soft, Tolerating PO Lochia: Yes: Rubra Lochia, amount: Small Extremities: Yes: Calves non-tender Perineum: Yes: Intact Activity: Ambulating - Labs Labs: CBC WBC 15.2 K/mm3 (4.0-10.0) H 02/02/18 08:00 RBC 4.11 M/mm3 (3.60-5.2) 02/02/18 08:00 Hgb 11.1 GM/dL (10.7-15.3) 02/02/18 08:00 Hct 34.0 % (32.4-45.2) 02/02/18 08:00 MCV 82.6 fl (80-96) 02/02/18 08:00 MCH 27.0 pg (25.7-33.7) 02/02/18 08:00 MCHC 32.7 g/dl (32.0-36.0) 02/02/18 08:00 RDW 16.9 % (11.6-15.6) H 02/02/18 08:00 Plt Count 175 K/MM3 (134-434) 02/02/18 08:00 MPV 9.2 fl (7.5-11.1) 02/02/18 08:00 Neutrophils % 71.3 % (42.8-82.8) 02/02/18 08:00 Lymphocytes % 16.1 % (8-40) 02/02/18 08:00 Monocytes % 8.6 % (3.8-10.2) 02/02/18 08:00 Eosinophils % 3.3 % (0-4.5) 02/02/18 08:00 Basophils % 0.7 % (0-2.0) 02/02/18 08:00 Problem List - Problems (1) Previous section complicating , antepartum condition or complication Code(s): O34.219 - MATERNAL CARE FOR UNSP TYPE SCAR FROM PREVIOUS DEL (2) Status post repeat low transverse section Code(s): Z98.891 - HISTORY OF UTERINE SCAR FROM PREVIOUS SURGERY Assessment/Plan Status post repeat Low Transverse Stable Ambulation Analgesia as needed Continue routine post op care
--- NOTE | 2018-02-03 14:43 | DS ---
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 Vital Signs: Vital Signs Temperature 98.3 F 02/03/18 09:42 Pulse Rate 70 02/03/18 09:42 Respiratory Rate 15 02/03/18 09:42 Blood Pressure 119/72 02/03/18 09:42 O2 Sat by Pulse Oximetry (%) 96 02/02/18 20:15 Constitutional: Yes: Well Nourished Eyes: Yes: Conjunctiva Clear HENT: Yes: Atraumatic Neck: Yes: Supple Cardiovascular: Yes: Regular Rate and Rhythm Respiratory: Yes: Regular Gastrointestinal: Yes: Normal Bowel Sounds External Genitalia: Yes: Normal Vaginal Exam: Yes: Normal Uterus: Yes: Firm Wound/Incision: Yes: Well Approximated, Steri Strips (in place) Neurological: Yes: Alert, Oriented ...Motor Strength: WNL Psychiatric: Yes: Alert, Oriented Labs: CBC, BMP 02/02/18 08:00 02/01/18 02:30 Delivery - Delivery Type of Anesthesia: Spinal Episiotomy/Laceration: None EBL (cc): 600 Delivery, Single - Stages of Labor Date of Delivery: 02/01/18 Time of Delivery: 07:08 Time Placenta Delivered: 07:09 - Condition of Side Seam Envelope Machine Operator/Support Service Tech Present: No Gender: Male Weight: 6 lb 12 oz Position: Left, OT Total Hours ROM (Hrs/Mins): 8hrs 9min - 1 Minute Total Score: 9 5 Minutes Total Score: 9 - Feeding Plan Initial Plan: Elected not to breastfeed exclusively throughout hospitalization Discharge Summary Reason For Visit: LABOR ADMIT Current Active Problems delivery delivered (Acute) Previous section complicating , antepartum condition or complication (Acute) Status post repeat low transverse section (Acute) Procedures: Principal: Repeat Low Transverse Hospital Course: Routine post op care Condition: Good - Instructions Diet, Activity, Other Instructions: Regular diet No driving, no lifting, x 4 weeks F/U in clinic in 2 weeks Disposition: HOME - Home Medications Comprehensive Discharge Medication List: Ambulatory Orders Ferrous Sulfate [Feosol] 325 mg PO HS 01/03/18 Vit/Iron Fum/Folic AC [ Tablet] 1 each PO HS 01/03/18
[2018-02-04] MEDS: FERROUS SO4 325 MG TABLET (FP) PO SCH (07:34)
[2018-02-04] MEDS: IBUPROFEN 600 MG TABLET (FP) PO PRN ×2 (07:34→11:08)
[2018-02-04] MEDS: oxyCODONE HCL 5 MG TABLET PO PRN (07:35)
--- NOTE | 2018-02-04 07:38 | PN ---
Progress Note (short form) - Note Progress Note: pod 3 s/p c/s doing w, ambulating CBC, BMP 02/02/18 08:00 02/01/18 02:30 abdomen soft, no distension, no cva incision dry, clean no calf tenderness lochia mild plan ambulate , cbc
[2018-02-04 07:58] LABS: BASO % 0.6 % (0-2.0); EOS % 5.8 % (0-4.5); HEMATOCRIT 30.7 % (32.4-45.2); HEMOGLOBIN 10.1 GM/dL (10.7-15.3); LYMPH % 23.3 % (8-40); MCH 27.2 pg (25.7-33.7); MCHC 33.1 g/dl (32.0-36.0); MEAN CELL VOLUME 82.4 fl (80-96); MEAN PLT VOLUME 8.9 fl (7.5-11.1); MONO % 9.3 % (3.8-10.2); PLATELET COUNT 182 K/MM3 (134-434); RBC 3.72 M/mm3 (3.60-5.2); RDW 16.9 % (11.6-15.6); WHITE BLOOD COUNT 10.7 K/mm3 (4.0-10.0)
[2018-02-04] MEDS: PRENATAL VITAMINS W/ FOLIC ACID TABLET (FP) PO SCH (09:56)
[2018-02-04 10:51] VITALS: BP 110/67; PULSE 72; TEMP 98.2
--- NOTE | 2018-02-08 15:35 | PATH ---
Surgical Pathology Report Patient Name: RAJESH BEAUCHAMP Med. Rec. #: [id number] /Age/Gender: 1990 (Age: 28) / F Account: [id number] Location: [facility] OBS/MEMBERSHIP SALES REPRESENTATIVE Taken: 02/01/2018 Received: 02/01/2018 Reported: 02/08/2018 Physicians: Rosanne Benjamin M.D. Specimen(s) Received PLACENTA Clinical History 37.5 weeks. Premature rupture of membranes. Previous section, kidney stones Final Diagnosis PLACENTA, DELIVERY: FOCALLY DISRUPTED THIRD TRIMESTER PLACENTA WITH SUBCHORIONIC AND INTERVILLOUS FIBRIN DEPOSITION, THREE VESSEL UMBILICAL CORD AND UNREMARKABLE PLACENTAL MEMBRANES. Electronically Signed Pedro Mera M.D. Gross Description The specimen is received fresh labeled placenta and is a 479 gram, 19 x 17 x 3 cm. placenta with attached membranes and umbilical cord. The attached membranes are glistening and translucent and insert marginally. The umbilical cord measures 64 cm. in length and averages 1.5 cm. in diameter. The cord inserts eccentrically, 2 cm. to the nearest margin. No true knots or strictures are identified. Cut surface of the umbilical cord reveals 3 vessels. The surface is gauthier-blue with minimal fibrin deposition and appropriate caliber vessels. The maternal surface is red-brown with focal defects. Sectioning reveals red-brown, spongy parenchyma. A 0.8 cm in greatest dimension area of consolidation is present. Senior Wealth Advisor sections are submitted in three cassettes as follows: 1- membrane rolls and umbilical cord; 2-3- full thickness sections of placenta. [facility]/02/04/2018 [facility]/02/04/2018
== END 2018-02-04 11:58 | disposition home or self-care (01) | DRG 540 ==
LOC: JDEL 00:25 → JLDR 01:15 → J3W 09:06
PROVIDERS: ADMIT Obstetrics & Gynecology; ATTEND Obstetrics & Gynecology
PROC: 10D00Z1 Extraction of Products of Conception, Low, Open Approach (ICD-10-PCS; principal; 2018-02-01)
DX: O34.211 Maternal care for low transverse scar from previous cesarean delivery (principal); Z3A.37 37 weeks gestation of pregnancy; Z37.0 Single live birth
CPT/HCPCS: 36415; 80048; 85025; 85610; 85730; 86593; 86850; 86900; 86901; 88307-TC

== ENCOUNTER 2018-08-06 21:11 | Emergency (ER) | payer OTHER ==
[2018-08-06 21:15] VITALS: BP 134/74; PULSE 71; TEMP 98.5; BMI 27.4
[2018-08-06] MEDS ORDERED: KETOROLAC TROMETHAMINE 30 MG/1 ML VIAL IVPUSH ONE (22:20)
[2018-08-06] MEDS ORDERED: KETOROLAC TROMETHAMINE 30 MG/1 ML VIAL ONE (22:24)
[2018-08-06 22:48] LABS: BASO % 1.4 % (0-2.0); EOS % 3.4 % (0-4.5); HEMOGLOBIN 12.3 GM/dL (10.7-15.3); LYMPH % 19.1 % (8-40); MCH 25.8 pg (25.7-33.7); MCHC 32.4 g/dl (32.0-36.0); MEAN CELL VOLUME 79.7 fl (80-96); MEAN PLT VOLUME 10.3 fl (7.5-11.1); MONO % 6.5 % (3.8-10.2); NEUT % 69.6 % (42.8-82.8); PLATELET COUNT 243 K/MM3 (134-434); RBC 4.77 M/mm3 (3.60-5.2); RDW 13.3 % (11.6-15.6); WHITE BLOOD COUNT 12.4 K/mm3 (4.0-10.0)
--- NOTE | 2018-08-06 22:50 | PDOC ---
History of Present Illness - General Chief Complaint: Chest Pain Stated Complaint: CHEST PAIN Time Seen by Provider: 08/06/18 21:47 - History of Present Illness Initial Comments: 28 yo f w a pmh of kidney stones is here with the CC of chest pain. She has had this pain for the past 3 months but it has acutely worsened in the past 24 hours so she came into the ER. She rates her chest pain as 8/10 in intensity and is associated with nausea but no emesis. She also reports increased chest pain on deep inspiration. She denies recent fevers, chills or infections. Denies any back pain, urinary or bowel complaints. LMP: 3 weeks ago. PCP: "[facility]" Allergies: Acetaminophen Social Hx: Denies using cigarettes, alcohol, or illicit drugs. Past History - Past Medical History Allergies/Adverse Reactions: Allergies Allergy/AdvReac Type Severity Reaction Status Date / Time acetaminophen [From Tylenol] Allergy Intermediate tachycardia Verified 08/06/18 21:15 Asthma: No Cancer: No Cardiac Disorders: No COPD: No CHF: No Diabetes: No HTN: No Seizures: No Thyroid Disease: No - Reproductive History (#): 2 Para: 1 Spontaneous : 0 - Suicide/Smoking/Psychosocial Hx Smoking Status: No Smoking History: Never smoked Have you smoked in the past 12 months: No Number of Cigarettes Smoked Daily: 0 Hx Alcohol Use: No Drug/Substance Use Hx: No Substance Use Type: None Hx Substance Use Treatment: No Review of Systems - Review of Systems Comments:: CONSTITUTIONAL: Absent: fever, no chills, no fatigue EYES: Absent: visual changes ENT: Absent: ear pain, no sore throat CARDIOVASCULAR: Present: chest pain Absent: no palpitations RESPIRATORY: Present: SOB Absent: cough GI: Present: Nausea Absent: abdominal pain, no vomiting, no constipation, no diarrhea GENITOURINARY: Absent: dysuria, no frequency, no hematuria MUSKULOSKELETAL: Absent: back pain, no arthralgia, no myalgia SKIN: Absent: rash NEURO: Absent: headache *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 - Vital Signs Last Vital Signs Temp Pulse Resp BP Pulse Ox 98.5 F 71 18 134/74 100 08/06/18 21:13 08/06/18 21:13 08/06/18 21:13 08/06/18 21:13 08/06/18 21:13 - 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 Comments: GENERAL: Well-appearing, well-nourished. No apparent distress. HEENT: Normocephalic, atraumatic. PERRL, EOM intact. CARDIOVASCULAR: Normal S1, S2. Regular rate and rhythm. PULMONARY: Clear to auscultation bilaterally. ABDOMEN: Soft, non-distended, non-tender. EXTREMITIES: Normal ROM in all four extremities. No gross deformities. SKIN: Warm, dry. No rash NEUROLOGICAL: No focal neurological deficits. Heart Score/ECG Review - Electrocardiogram EKG: Normal - Age Age: </= 45 - ECG Intrepretation Rhythm: Regular Rhythm - Astor Astor: Normal - ECG Impressions Normal ECG: Yes ED Treatment Course - LABORATORY CBC & Chemistry Diagram: 08/06/18 22:42 08/06/18 22:42 - ADDITIONAL ORDERS Additional order review: Laboratory Results 08/06/18 08/06/18 22:57 22:42 Sodium 140 Potassium 3.8 Chloride 105 Carbon Dioxide 26 Anion Gap 9 BUN 9 Creatinine 0.7 Creat Clearance w eGFR > 60 Random Glucose 110 H Calcium 8.6 Total Bilirubin 0.3 AST 18 ALT 17 Alkaline Phosphatase 75 Troponin I < 0.02 Total Protein 7.3 Albumin 3.3 L Urine HCG, Qual Negative 08/06/18 22:42 RBC 4.77 MCV 79.7 L MCHC 32.4 RDW 13.3 D MPV 10.3 D Neutrophils % 69.6 Lymphocytes % 19.1 Monocytes % 6.5 Eosinophils % 3.4 Basophils % 1.4 - RADIOLOGY Radiology Studies Ordered: Category Date Time Status CHEST PA & LAT [RAD] Stat Radiology 08/06/18 22:19 Taken - Medications Given in the ED: ED Medications Discontinued Medications Generic Name Dose Route Start Last Admin Trade Name Freq PRN Reason Stop Dose Admin Ketorolac Tromethamine 30 mg 08/06/18 22:20 08/06/18 22:35 Toradol Injection - IVPUSH 08/06/18 22:21 30 mg ONCE ONE Administration Medical Decision Making - Medical Decision Making 28 yo f w a pmh of kidney stones is here with the CC of pleuritic, reproducible chest pain associated with nausea but no emesis DD includes but not limited to: ACS, pneumothorax, MSK pain, costocondritis Plan: Cbc, Cmp, lipase, hcg, ekg, cxr, toradol, re-assess. EKG is normal sinus. Patient feels significant;y better after toradol. HCG, lipase negative. CXR showed no acute pathology. No pneumothorax, no infiltrate. Will DC with PCP FU and ibuprofen for pain control. *DC/Admit/Observation/Transfer Diagnosis at time of Disposition: Chest pain, Costochondritis - Discharge Dispostion Disposition: HOME Condition at time of disposition: Improved Decision to Admit order: No - Referrals Referrals: Thom Barker MD [Staff Physician] - - Patient Instructions Printed Discharge Instructions: Costochondritis, DI for Atypical Chest Pain, DI for Chest Pain Additional Instructions: You came into the ER with chest pain. We did some tests and determined your chest pain is likely musculoskeletal in nature. We believe it is costochondritis - see attached packet for explanation. Please make sure to follow up with your primary care doctor to make sure you are getting better and feeling better. Take motrin/ibuprofen/advil as needed for pain control. Please come back to the ER if your pain worsens, you start vomiting, get a high fever, have difficulty breathing, or any other new or worsening concerns. Thank you for coming to the [facility] ER. We hope you feel better soon! Print Language: PASHTO - Post Discharge Activity
[2018-08-06 23:13] LABS: ALBUMIN 3.3 g/dl (3.4-5.0); ALK PHOS 75 U/L (45-117); ANION GAP 9 MMOL/L (8-16); BILIRUBIN,TOTAL 0.3 mg/dL (0.2-1); BLOOD UREA NITROGEN 9 mg/dL (7-18); CALCIUM 8.6 mg/dL (8.5-10.1); CHLORIDE 105 mmol/L (98-107); CO2 26 mmol/L (21-32); CREATININE 0.7 mg/dL (0.55-1.3); GLUCOSE,RANDOM 110 mg/dL (74-106); POTASSIUM 3.8 mmol/L (3.5-5.1); SGOT/AST 18 U/L (15-37); SGPT/ALT 17 U/L (13-61); SODIUM 140 mmol/L (136-145); TOT PROT 7.3 g/dl (6.4-8.2)
--- NOTE | 2018-08-06 23:36 | PDOC ---
Attending Attestation - Resident Resident Name: Donnie Rubio - ED Attending Attestation I have performed the following: I have examined & evaluated the patient, The case was reviewed & discussed with the resident, I agree w/resident's findings & plan, Exceptions are as noted - HPI HPI: 28 yo F history kidney stones presents with chest pain for the past 3 months intermittently. She came to the ED today because it felt worse than usual. Associated with nausea, no vomiting. No sweating, SOB, leg swelling. Does not use OCPs. - Physicial Exam PE: GENERAL: Awake, alert, and fully oriented, in no acute distress HEAD: No signs of trauma EYES: PERRLA, EOMI, sclera anicteric, conjunctiva clear ENT: Auricles normal inspection, hearing grossly normal, nares patent, oropharynx clear without exudates. Moist mucosa NECK: Normal ROM, supple, no lymphadenopathy, JVD, or masses LUNGS: Breath sounds equal, clear to auscultation bilaterally. No wheezes, and no crackles. Pain is reproducible. HEART: Regular rate and rhythm, normal S1 and S2, no murmurs, rubs or gallops ABDOMEN: Soft, nontender, normoactive bowel sounds. No guarding, no rebound. No masses EXTREMITIES: Normal range of motion, no edema. No clubbing or cyanosis. No cords, erythema, or tenderness NEUROLOGICAL: Cranial nerves II through XII grossly intact. Normal speech, normal gait SKIN: Warm, Dry, normal turgor, no rashes or lesions noted. - Medical Decision Making Pt with reproducible chest pain. No signs of DVT on exam, and low risk for PE by clinical eval. EKG and CXR wnl. Stable for DC home.
--- NOTE | 2018-08-07 10:50 | EKG ---
Test Reason : Blood Pressure : / mmHG Vent. Rate : 066 BPM Atrial Rate : 066 BPM P-R Int : 130 ms QRS Dur : 082 ms QT Int : 400 ms P-R-T Axes : 040 -15 -15 degrees QTc Int : 419 ms NORMAL SINUS RHYTHM NONSPECIFIC ST ABNORMALITY NO PREVIOUS ECGS AVAILABLE Confirmed by OSIRIS ZAMBRANO MD ([id number]) on 08/07/2018 10:50:25 AM Referred By: Confirmed By:OSIRIS ZAMBRANO MD
== END 2018-08-07 00:10 | disposition home or self-care (01) ==
LOC: JER 21:11
PROC: 3E0333Z Introduction of Anti-inflammatory into Peripheral Vein, Percutaneous Approach (ICD-10-PCS; principal; 2018-08-06)
DX: M94.0 Chondrocostal junction syndrome [Tietze] (principal)
CPT/HCPCS: 36415; 71046-TC-FY; 80053; 84484; 84703; 85025; 93005; 93010; 96374; 99284-25

== ENCOUNTER 2018-08-19 13:13 | Emergency (ER) | payer OTHER ==
[2018-08-19 13:19] VITALS: BMI 28.6
[2018-08-19 14:08] LABS: BASO % 0.7 % (0-2.0); EOS % 3.4 % (0-4.5); HEMATOCRIT 41.2 % (32.4-45.2); HEMOGLOBIN 13.1 GM/dL (10.7-15.3); LYMPH % 23.3 % (8-40); MCH 25.5 pg (25.7-33.7); MCHC 31.7 g/dl (32.0-36.0); MEAN CELL VOLUME 80.4 fl (80-96); MEAN PLT VOLUME 10.4 fl (7.5-11.1); MONO % 6.4 % (3.8-10.2); NEUT % 66.2 % (42.8-82.8); PLATELET COUNT 288 K/MM3 (134-434); RBC 5.12 M/mm3 (3.60-5.2); RDW 13.6 % (11.6-15.6); WHITE BLOOD COUNT 13.4 K/mm3 (4.0-10.0)
[2018-08-19 14:12] LABS: URINE APPEARANCE CLEAR; URINE BILIRUBIN NEGATIVE (<2.0 mg/dL); URINE COLOR LTYELLOW; URINE GLUCOSE (UA) NEGATIVE (NEGATIVE); URINE KETONE NEGATIVE (NEGATIVE); URINE LEUK ESTERASE TRACE (NEGATIVE); URINE NITRITE NEGATIVE (NEGATIVE); URINE PROTEIN NEGATIVE (NEGATIVE); URINE UROBILINOGEN NEGATIVE mg/dL (0.2-1.0)
--- NOTE | 2018-08-19 14:28 | PDOC ---
History of Present Illness - General Chief Complaint: SIRS, Suspected/Possible Stated Complaint: WEAKNESS Time Seen by Provider: 08/19/18 13:26 History Source: Patient Exam Limitations: No Limitations - History of Present Illness Initial Comments: 28 yo F pmh kidney stones (saw Dr. Layton Greene yesterday in office where it was diagnosed and scheduled for lithotripsy on Sep 12) and C section 6 months ago without complications presents to the ED after 2 weeks of nausea, no vomiting, generalized weakness and RUQ abdominal pain. Patient also admits to SOB with deep inspiration and worse symptoms in the morning but denies F/C, burning/pain or increased frequency of urination, no changes in bowel habits or CP. Past History - Past Medical History Allergies/Adverse Reactions: Allergies Allergy/AdvReac Type Severity Reaction Status Date / Time acetaminophen [From Tylenol] Allergy Intermediate tachycardia Verified 08/19/18 13:19 Home Medications: Ambulatory Orders Ciprofloxacin/Ciprofloxa HCl [Cipro Xr 500 mg Tablet] 500 mg PO BID 3 Days #6 tbmp.24hr 08/19/18 Asthma: No Cancer: No Cardiac Disorders: No COPD: No CHF: No Diabetes: No HTN: No Seizures: No Thyroid Disease: No - Reproductive History (#): 2 Para: 1 Spontaneous : 0 - Suicide/Smoking/Psychosocial Hx Smoking Status: No Smoking History: Never smoked Have you smoked in the past 12 months: No Number of Cigarettes Smoked Daily: 0 Hx Alcohol Use: No Drug/Substance Use Hx: No Substance Use Type: None Hx Substance Use Treatment: No Review of Systems - Review of Systems Constitutional: No: Chills, Fever Respiratory: Yes: Shortness of Breath (with deep inspiration) Cardiac (ROS): No: Chest Pain ABD/GI: Yes: Nausea. No: Constipated, Diarrhea, Vomiting : No: Burning, Dysuria, Frequency Neurological: No: Headache, Numbness, Paresthesia, Weakness (non focal, generalized weakness) *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 - Vital Signs Last Vital Signs Temp Pulse Resp BP Pulse Ox 98.1 F 120 H 22 H 132/80 100 08/19/18 13:16 08/19/18 13:16 08/19/18 13:16 08/19/18 13:16 08/19/18 13:16 - 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 General Appearance: Yes: Nourished, Appropriately Dressed. No: Apparent Distress HEENT: positive: EOMI ED Treatment Course - LABORATORY CBC & Chemistry Diagram: 08/19/18 13:39 08/19/18 13:39 - ADDITIONAL ORDERS Additional order review: Laboratory Results 08/19/18 08/19/18 13:39 13:39 Troponin I Cancelled Urine HCG, Qual Negative Medical Decision Making - Medical Decision Making 08/19/18 15:[address] Layton Greene who confirms pt saw him in office yesterday and Right and Left Kidney stones in the kidney both measuring above 9 cm with Lithotripsy scheduled Sep 12. Dr. Layton Greene aware of Pts CBC, CMP, Lactic and UA, states as long as pain is controlled pt can be sent home with antibiotics 08/19/18 18:28 28 yo female pmh of urinary stone presents to the ED with RUQ pain. DDX: Kidney stone, UTI, gallstone RUQ ultrasound negative for cholecystitis or stone, no mention of nephrolithiasis or hydro but already confirmed by Urology on ultrasound yesterday Toradol 30 mg IV helped with pain and on multiple reassessments pain has improved. Lactic improved from 2.2 to .6 with 2L NS Will send home with follow up with Urology follow up as per Dr. Layton Greene 08/19/18 19:01 *DC/Admit/Observation/Transfer Diagnosis at time of Disposition: Kidney stone - Discharge Dispostion Disposition: HOME Condition at time of disposition: Stable Decision to Admit order: No - Referrals Referrals: Renny Joy MD [Staff Physician] - - Patient Instructions Printed Discharge Instructions: DI for Kidney Stones Additional Instructions: Please follow up with Dr. Joy and make an appointment within the next 2 days. Please take Ciprofloxacin 500mg 2 times daily for 3 days. Please return to the emergency room for new or worsening symptoms including but not limited to: pain not relieved by over the counter medication, high fevers, urinating blood, nausea or vomiting. Thank you - Post Discharge Activity
--- NOTE | 2018-08-19 14:29 | PDOC ---
Attending Attestation - HPI HPI: 08/19/18 15:55 The patient is a 28-year-old female with past medical history significant for hx of Kidney stones (10 years ago, sonogram confirmed by Dr. Joy on 2017 for multiple Kidney stones, scheduled for bilateral lithotripsy on 2017) and 6 months () presents to the emergency department with nausea, fatigue with mild SOB, malaise and abdominal pain. The patient presents with 2 weeks of symptoms thats been constant since presentation. The patient reports a constant pain to the upper quadrant of the abdomen, more felt on the right side. The patient reports the pain is aggravated with picking up her child and mildly exacerbated with moving around, with a severity of 9/10 at exacerbation, lasting 30 minutes before subsiding. The patient reports the pain is felt about an hour after waking up, denies waking up with the pain or having pain prior to going to sleep. The patient reports associated symptoms of nausea after eating, denies vomiting and a little diarrhea, denies hematochezia or melena. The patient reports following up with PCP with the symptoms, with unremarkable workup. Per prior reports, the patient was seen at the ED on 08/06 for 3 months of chest pain, with unremarkable work-up. Denies urinary symptoms, changes in bowel habits, fever, chest pain, hx of gallstones. Denies the pain is similar to prior Kidney stone episodes. Allergies: acetaminophen Social history: No past or present use of tobacco, alcohol or recreational drug use. Surgical history: Scheduled for bilateral lithotripsy on 09/12/2018 PCP: Dr. Loren Lion [employer] R[employer] Manager: Dr. Joy. <Sanjuanita Villalba - Last Filed: 08/19/18 15:55> - Resident Resident Name: Shahzad Mann - ED Attending Attestation I have performed the following: I have examined & evaluated the patient, The case was reviewed & discussed with the resident, I agree w/resident's findings & plan, Exceptions are as noted - Physicial Exam PE: 08/19/18 15:46 GENERAL: The patient is awake, alert, and fully oriented, Nontoxic - in no acute distress. HEAD: Normocephalic, atraumatic. EYES: extraocular movements intact, sclera anicteric, conjunctiva clear. ENT: Normal voice, Moist mucous membranes. NECK: Normal range of motion, supple LUNGS: Breath sounds equal, clear to auscultation bilaterally. No wheezes, no rhonchi, no rales. HEART: Regular rate and rhythm, normal S1 and S2 without murmur, rub or gallop. ABDOMEN: mild RUQ tendeness, +murphies sign EXTREMITIES: Normal range of motion, no edema. NEUROLOGICAL: No facial assymetry, Normal speech, moving all 4 extremities spontaneously and symmetrically PSYCH: Normal mood, normal affect. SKIN: Warm, Dry, normal turgor, - Medical Decision Making 08/19/18 15:30 08/19/18 14:28 28 y F 6 months post , hx of kidney stones, presents with 2 weeks of nausea, generalized weakenss and RUQ pain . Pt notes the pain seems to wax and wane, seems to resolve at night, but comes back after 1 hr after waking, not associated with food intake or mvoement. associated with nausea w/o vomiting, cough, fever/chills, abd pain, dysuria, dairrhea on exam +murphies ddx - kidney stone, gall stones, pna labs noted for mild leukocytosis will obtain RUQ US cxr will give fluids, reglan will reassess A portion of this note was documented by scribe services under my direction. I have reviewed the details of the note, within reason, and agree with the documentation with the following case summary and management plan written by me 08/19/18 18:26 labs reivewed noted for mild leukocytosis LA eelvatred to 2.2, repeat after fluids improved to 0.6 US negative HR improved pt currently asypmtomatic will dc with pmd fu and outpatient mangaement <Loco Lee - Last Filed: 08/19/18 18:26>
[2018-08-19 14:32] LABS: EPI CELLS RARE /HPF (FEW); URINE MUCUS RARE
[2018-08-19 14:36] LABS: VENOUS PC02 45.2 mmHg (38-52); VENOUS PH 7.34 (7.32-7.42); VENOUS PO2 23.7 mmHg (28-48)
[2018-08-19] MEDS ORDERED: KETOROLAC TROMETHAMINE 30 MG/1 ML VIAL IVPUSH ONE (14:38)
[2018-08-19 14:43] LABS: ALK PHOS 95 U/L (45-117); ANION GAP 10 MMOL/L (8-16); BILIRUBIN,TOTAL 0.5 mg/dL (0.2-1); BLOOD UREA NITROGEN 11 mg/dL (7-18); CALCIUM 9.4 mg/dL (8.5-10.1); CHLORIDE 104 mmol/L (98-107); CO2 25 mmol/L (21-32); CREATININE 0.8 mg/dL (0.55-1.3); GLUCOSE,RANDOM 104 mg/dL (74-106); POTASSIUM 3.6 mmol/L (3.5-5.1); SGOT/AST 15 U/L (15-37); SGPT/ALT 15 U/L (13-61); SODIUM 139 mmol/L (136-145); TOT PROT 8.4 g/dl (6.4-8.2)
[2018-08-19] MEDS ORDERED: KETOROLAC TROMETHAMINE 30 MG/1 ML VIAL ONE (14:57)
[2018-08-19] MEDS ORDERED: SODIUM CHLORIDE 1,000 ML IV STA (15:17)
[2018-08-19] MEDS ORDERED: METOCLOPRAMIDE HCL INJECTION 10 MG/2 ML VIAL IVPUSH ONE (15:32)
[2018-08-19] MEDS ORDERED: SODIUM CHLORIDE 1,000 ML IV ONE (15:32)
[2018-08-19] MEDS ORDERED: METOCLOPRAMIDE HCL INJECTION 10 MG/2 ML VIAL ONE (15:50)
[2018-08-19 17:00] LABS: INR 1.01 (0.83-1.09); PROTHROMBIN TIME (PATIENT) 11.9 SEC (9.7-13.0)
[2018-08-19 17:03] LABS: ACTIVATED PTT 30.1 SECONDS (25.2-36.5)
[2018-08-19 18:17] VITALS: BP 110/65; PULSE 76; TEMP 98.2
--- NOTE | 2018-08-20 15:02 | EKG ---
Test Reason : Blood Pressure : / mmHG Vent. Rate : 080 BPM Atrial Rate : 080 BPM P-R Int : 154 ms QRS Dur : 080 ms QT Int : 340 ms P-R-T Axes : 068 -40 -18 degrees QTc Int : 392 ms NORMAL SINUS RHYTHM WITH SINUS ARRHYTHMIA LEFT AXIS DEVIATION NONSPECIFIC T WAVE ABNORMALITY ABNORMAL ECG WHEN COMPARED WITH ECG OF 06-AUG-2018 21:13, T WAVE INVERSION NOW EVIDENT IN ANTERIOR LEADS Confirmed by MD Torrey, Sergio ([id number]) on 08/20/2018 3:01:38 PM Referred By: Confirmed By:Sergio Hirsch MD
== END 2018-08-19 19:09 | disposition home or self-care (01) ==
LOC: JER 13:13
PROC: 3E0333Z Introduction of Anti-inflammatory into Peripheral Vein, Percutaneous Approach (ICD-10-PCS; principal; 2018-08-19)
PROC: 3E033GC Introduction of Other Therapeutic Substance into Peripheral Vein, Percutaneous Approach (ICD-10-PCS; 2018-08-19)
PROC: 3E0337Z Introduction of Electrolytic and Water Balance Substance into Peripheral Vein, Percutaneous Approach (ICD-10-PCS; 2018-08-19)
DX: N20.0 Calculus of kidney (principal)
CPT/HCPCS: 36415; 71045-TC-FY; 76705-TC; 80053; 81003; 81015; 82803; 83605; 84484; 84703; 85025; 85610; 85730; 87040; 87086; 87186; 93005; 93010; 96361; 96374; 96375; 99283-25; J7030

== ENCOUNTER 2018-09-02 09:19 | Emergency (ER) | payer OTHER ==
[2018-09-02 09:30] VITALS: BP 121/75; PULSE 92; TEMP 98.6; BMI 26.7
--- NOTE | 2018-09-02 11:18 | PDOC ---
History of Present Illness - General Chief Complaint: Pain, Acute Stated Complaint: BREAST PAIN Time Seen by Provider: 09/02/18 11:08 History Source: Patient Exam Limitations: No Limitations - History of Present Illness Initial Comments: CHIEF COMPLAINT: 28 y/o afebrile female with no significant PMH c/o left rib pain x 3 weeks and a lump on her left breast x 2 days. HISTORY OF PRESENT ILLNESS: The patient denies fever, chills, n/v/d, CP, SOB, back pain, weight loss, redness/swelling to affected areas. She has not taken anything over the counter for pain. She does have a primary care doctor and she sees Aleyda Magaña yearly for her PAP smears, which have all been normal. Patient's LMP was 3 weeks ago. Vital signs on arrival are within normal limits. REVIEW OF SYSTEMS: GENERAL/CONSTITUTIONAL: No fever/chills. No weakness. No weight change. HEAD, EYES, EARS, NOSE AND THROAT: No change in vision. No ear pain or discharge. No sore throat. CARDIOVASCULAR: No chest pain or shortness of breath. RESPIRATORY: No cough, wheezing, or hemoptysis. GASTROINTESTINAL: No nausea, vomiting, diarrhea. GENITOURINARY: No dysuria, frequency, or change in urination. MUSCULOSKELETAL: +left rib pain and lump to left breast. No neck or back pain. SKIN: No rash or easy bruising. NEUROLOGIC: No headache, vertigo, loss of consciousness, or loss of sensation. PHYSICAL EXAM: GENERAL: The patient is awake, alert, and fully oriented, in no acute distress. She is well appearing and ambulatory. HEAD: Normal with no signs of trauma. ENT: Pupils equal, round and reactive to light, extraocular movements intact, sclera anicteric, conjunctiva clear. Neck supple. LUNGS: Clear to auscultation bilaterally. Normal excursion. No respiratory distress or use of accessory muscles. CHEST WALL: TTP of anterior 12th rib of left side without any deformities, crepitus or flail chest. BREAST: Breasts are equal in size and appearance b/l. No nipple inversion, edema, erythema, warmth, streaking, masses, Sybil d'orange b/l breasts. No lymphadenopathy or masses appreciated in tail of jamil b/l. TTP of left chest wall at left midaxillary line without mass appreciated. CV: RRR, S1/S2, no MRG. Cap refill < 2 sec. ABDOMEN: Soft, non-distended, non-tender even to deep palpation, no hepatomegaly or splenomegaly, no masses. EXTREMITIES: Normal range of motion, no edema. NEUROLOGICAL: Normal speech, normal gait. CN II-XII grossly intact. PSYCH: Normal mood, normal affect. SKIN: Warm, dry, normal turgor, no rashes or lesions noted. Past History - Past Medical History Allergies/Adverse Reactions: Allergies Allergy/AdvReac Type Severity Reaction Status Date / Time acetaminophen [From Tylenol] Allergy Intermediate tachycardia Verified 09/02/18 10:50 Home Medications: Ambulatory Orders Ibuprofen 600 mg PO TID #20 tablet 09/02/18 Asthma: No Cancer: No Cardiac Disorders: No COPD: No CHF: No Diabetes: No HTN: No Seizures: No Thyroid Disease: No - Reproductive History (#): 2 Para: 1 Spontaneous : 0 - Immunization History Immunization Up to Date: Yes - Suicide/Smoking/Psychosocial Hx Smoking Status: No Smoking History: Never smoked Have you smoked in the past 12 months: No Number of Cigarettes Smoked Daily: 0 Hx Alcohol Use: No Drug/Substance Use Hx: No Substance Use Type: None Hx Substance Use Treatment: No *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 - Vital Signs Last Vital Signs Temp Pulse Resp BP Pulse Ox 98.6 F 92 H 16 121/75 99 09/02/18 09:28 09/02/18 09:28 09/02/18 09:28 09/02/18 09:28 09/02/18 09:28 Medical Decision Making - Medical Decision Making A/P: 28 y/o female with what appears to be musculoskeletal chest wall pain on left side without any breast masses or lymph nodes appreciated. Plan is as follows: 1. hcg 2. rib xray hcg - negative Will give IM toradol Rib xray IMPRESSION: (Wet read) No acute pathology. Gave patient her results. Will send rx for ibuprofen Suggested she f/u with her doctor and Aleyda magaña next week. Patient instructed to return to the ER with any worsening or concerning symptoms. The patient verbalizes understanding of all instructions, has no further questions and is awaiting discharge. *DC/Admit/Observation/Transfer Diagnosis at time of Disposition: Rib pain on left side - Discharge Dispostion Disposition: HOME Condition at time of disposition: Good - Referrals Referrals: Loren Lion MD [Primary Care Provider] - (Call Wednesday) Aleyda Magaña MD [Certified Nurse [place]] - (Call Wednesday) - Patient Instructions Printed Discharge Instructions: How To Perform RICE (Rest, Ice, Compress, Elevate), DI for Breast Pain (Mastalgia) Additional Instructions: Discharge Instructions: -Your xray was normal -A prescription for pain medication has been sent to your pharmacy -Please call your doctor and Aleyda Magaña on Wednesday and schedule follow up appointments -Return to the ER with any worsening or concerning symptoms Instrucciones de descarga: -Tu radiografa era normal -Noris receta para medicamentos para el dolor chavez sido enviada a mike farmacia - Llame a mike mdico y a Anthony Magaña el lunes y programe citas de seguimiento -Regreso a la destiney de emergencias con cualquier empeoramiento o sntomas relacionados Print Language: MOLDOVAN - Post Discharge Activity
[2018-09-02] MEDS ORDERED: KETOROLAC TROMETHAMINE 60 MG/2 ML VIAL IM ONE (12:31)
[2018-09-02] MEDS ORDERED: KETOROLAC TROMETHAMINE 60 MG/2 ML VIAL ONE (12:38)
== END 2018-09-02 13:07 | disposition home or self-care (01) ==
LOC: JERFT 09:19
DX: R07.81 Pleurodynia (principal)
CPT/HCPCS: 71101-TC-FY; 84703; 99281-25

== ENCOUNTER 2018-09-12 13:25 | Day surgery (SDC) | payer OTHER ==
[2018-09-08 19:57] VITALS: BMI 26.4
[2018-09-12] MEDS ORDERED: MIDAZOLAM HCL 2 MG/2 ML SINGLE DOSE VIAL ONE (15:05)
[2018-09-12] MEDS ORDERED: PROPOFOL 20 ML ONE (15:05)
[2018-09-12] MEDS ORDERED: fentaNYL CITRATE 250 MCG/5 ML VIAL ONE (15:12)
--- NOTE | 2018-09-12 15:49 | OP ---
Operative Note - Note: Operative Date: 09/12/18 Pre-Operative Diagnosis: RIGHT RENAL STONE Operation: Right ESWL Findings: x2 7 mm lover pole Right renal stone Post-Operative Diagnosis: Same as Pre-op Surgeon: Renny Joy Anesthesia: Fractional Estimated Blood Loss (mls): 0 Drains & Tubes with Location: none
[2018-09-12] MEDS ORDERED: ONDANSETRON 4 MG/2 ML VIAL IVPUSH PRN (15:53)
[2018-09-12] MEDS ORDERED: oxyCODONE HCL 5 MG TABLET PO PRN (15:53)
[2018-09-12] MEDS ORDERED: LACTATED RINGERS SOLUTION 1,000 ML IV SCH (16:00)
[2018-09-12 16:59] VITALS: TEMP 98.5
[2018-09-12 18:29] VITALS: BP 119/74; PULSE 75
--- NOTE | 2018-09-13 08:40 | OP ---
DATE OF OPERATION: 09/12/2018 PREOPERATIVE DIAGNOSIS: Right renal stone. POSTOPERATIVE DIAGNOSIS: Right renal stone. PROCEDURE: Right extracorporeal shock wave lithotripsy. ATTENDING: Michael Dahl MD ANESTHESIA: Fractional. OPERATION: The patient was brought in the operating room, placed in supine position on the operating room table. Ultrasonography and fluoroscopy were performed. Two stones, each measuring 7 mm, were noted in the left lower pole. The stones were noted on fluoroscopy. The patient was given anesthesia and preoperative antibiotics. One of the two stones in the lower pole was targeted. Then, 3000 impulses at 20 joules of power were administered to the stone with excellent fragmentation. The patient has a residual 7-mm stone, which will be followed up with another extracorporeal shock wave lithotripsy in 3-6 months. The disposition of the patient was to the recovery room. MICHAEL DAHL M.D. [id number]
== END 2018-09-12 18:20 | disposition home or self-care (01) ==
LOC: JASU-SURG 13:25
PROVIDERS: ATTEND Urology
PROC: 0TF3XZZ Fragmentation in Right Kidney Pelvis, External Approach (ICD-10-PCS; principal; 2018-09-12 15:30)
DX: N20.0 Calculus of kidney (principal)
CPT/HCPCS: 84703; 94760

== ENCOUNTER 2018-10-21 21:49 | Emergency (ER) | payer OTHER ==
[2018-10-21 22:48] VITALS: BP 140/72; PULSE 77; TEMP 98.7; BMI 25.7
--- NOTE | 2018-10-21 23:29 | PDOC ---
History of Present Illness - General Chief Complaint: Eye Problem Stated Complaint: PINK EYE Time Seen by Provider: 10/21/18 23:11 History Source: Patient Exam Limitations: No Limitations - History of Present Illness Initial Comments: 10/21/18 23:25 HISTORY OF PRESENT ILLNESS: This a 28-year-old woman denies medical history presents for evaluation of right eye redness since awaking this morning. Patient denies any blurry vision, dizziness, headaches, ocular pain, nausea, vomiting, coughing, trauma. No recent travel or sick contacts. PAST MEDICAL HISTORY: Denies past medical history SURGICAL HISTORY: Denies ALLERGIES: APAP REVIEW OF SYSTEMS General/Constitutional: Denies fever or chills. Denies weakness, weight change. HEENT: Denies change in vision. Denies ear pain or discharge. Denies sore throat. Cardiovascular: Denies chest pain or shortness of breath. Respiratory: Denies cough, wheezing, or hemoptysis. Gastrointestinal: Denies nausea, vomiting, diarrhea or constipation. Denies rectal bleeding. Genitourinary: Denies dysuria, frequency, or change in urination. Musculoskeletal: Denies joint or muscle swelling or pain. Denies neck or back pain. Skin and breasts: Denies rash or easy bruising. Neurologic: Denies headache, vertigo, loss of consciousness, or loss of sensation. Psychiatric: Denies depression or anxiety. Endocrine: Denies increased thirst. Denies abnormal weight change. Hematologic/Lymphatic: Denies anemia, easy bleeding, or history of blood clots. Allergic/Immunologic: Denies hives or skin allergy. Denies latex allergy. PHYSICAL EXAM General Appearance: Well-appearing, appropriately dressed. No apparent distress , no intoxication. HEENT: EOMI, PERRLA, normal ENT inspection, normal voice, TMs normal, pharynx normal. No conjunctival pallor. No photophobia, scleral icterus. EYE EXAMINATION: Visual acuity: 20/20 in the left eye, 20/20 in the right eye, near, corrected The lid and lashes are normal. Extraocular movements are intact. Subconjunctival hemorrhage present to the right eye lateral to the iris. No discharge present. The corneal surface is normal post tetracaine and fluorescein. There is no corneal abrasion or foreign body. There is no abnormal fluorescein uptake. The pupils are equal, round and reactive to light. The fundus shows normal vessels and normal discs. 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 Fully oriented, alert. Appropriate mood/affect. Motor strength 5/5. No appreciable EOM palsy, facial droop or sensory deficit. Past History - Past Medical History Allergies/Adverse Reactions: Allergies Allergy/AdvReac Type Severity Reaction Status Date / Time acetaminophen [From Tylenol] Allergy Intermediate tachycardia Verified 09/02/18 10:50 Home Medications: Ambulatory Orders NK [No Known Home Medication] 09/08/18 Asthma: No Cancer: No Cardiac Disorders: No COPD: No CHF: No Diabetes: No HTN: No Seizures: No Thyroid Disease: No - Reproductive History (#): 2 Para: 1 Spontaneous : 0 - Immunization History Immunization Up to Date: Yes - Suicide/Smoking/Psychosocial Hx Smoking Status: No Smoking History: Never smoked Have you smoked in the past 12 months: No Number of Cigarettes Smoked Daily: 0 Hx Alcohol Use: No Drug/Substance Use Hx: No Substance Use Type: None Hx Substance Use Treatment: No *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 - Vital Signs Last Vital Signs Temp Pulse Resp BP Pulse Ox 98.7 F 77 19 140/72 100 10/21/18 22:46 10/21/18 22:46 10/21/18 22:46 10/21/18 22:46 10/21/18 22:46 Moderate Sedation - Procedure Monitoring Vital Signs: Procedure Monitoring Vital Signs Temperature 98.7 F 10/21/18 22:46 Pulse Rate 77 10/21/18 22:46 Respiratory Rate 19 10/21/18 22:46 Blood Pressure 140/72 10/21/18 22:46 O2 Sat by Pulse Oximetry (%) 100 10/21/18 22:46 Medical Decision Making - Medical Decision Making 10/21/18 23:28 A/P: 28-year-old female with right subconjunctival hematoma No change in visual acuity No hyphema present Red reflex is within normal limits Extraocular movements intact No corneal abrasion, laceration or foreign body noted after tetracaine and fluorescein staining Discharge home *DC/Admit/Observation/Transfer Diagnosis at time of Disposition: Subconjunctival hemorrhage, non-traumatic Qualifiers: Laterality: right Qualified Code(s): H11.31 - Conjunctival hemorrhage, right eye - Discharge Dispostion Disposition: HOME Condition at time of disposition: Stable Decision to Admit order: No - Referrals Referrals: Luca Bess MD [Staff Physician] - - Patient Instructions Additional Instructions: Do not need any medications for her subconjunctival hemorrhage. You've been given a referral for bleach boiler packer. If you form another subconjunctival hemorrhage, contact the bleach boiler packer for reevaluation. Return to emergency department for any concerns. Thank you very much for choosing us to provide your emergent health care needs. - Post Discharge Activity
== END 2018-10-21 23:37 | disposition home or self-care (01) ==
LOC: JER 21:49
DX: H11.31 Conjunctival hemorrhage, right eye (principal)
CPT/HCPCS: 99281-25